=== PATIENT | male | born 1945 | race Caucasian/White ===

== ENCOUNTER 2017-04-20 09:51 | Emergency (ER) | payer MEDICARE, OTHER ==
--- NOTE | 2017-04-20 10:47 | ER Document Report ---
ED Medical Screen (RME) - General Chief Complaint: Hip Pain Stated Complaint: LEFT THIGH AND HIP NUMBNESS Time Seen by Provider: 04/20/17 10:22 Mode of Arrival: Ambulatory Information source: Patient Notes: Patient presents to emergency department with complaints of left thigh numbness and pain. Patient also reports left arm with intermittent numbness. Denies chest pain shortness of breath. Patient has history of stroke aneurysm ID cardiac surgery. Patient gives history of Saturday pulling a six-foot trailer behind him. On Saturday he went to [place] emergency department where his blood pressure and a physical exam were completed. No lab or CT. He reports he was told he was fine. He reports this morning he woke up at 0200 and had pain with numbness to his left thigh. He reports the left arm has been going numb on and off since Saturday. TRAVEL OUTSIDE OF THE [place] IN LAST 30 DAYS: No - Related Data Allergies/Adverse Reactions: oral contrast Allergy (Uncoded 04/20/17 10:01) Past Medical History - Social History Frequency of alcohol use: Occasional Drug Abuse: None Renal/ Medical History: Denies: Hx Peritoneal Dialysis Physical Exam - Vital signs Vitals: Temp Pulse Resp BP Pulse Ox 97.8 F 73 18 157/93 H 96 04/20/17 10:01 04/20/17 10:01 04/20/17 10:01 04/20/17 10:01 04/20/17 10:01 Course - Vital Signs Vital signs: Temp Pulse Resp BP Pulse Ox 97.8 F 73 18 157/93 H 96 04/20/17 10:01 04/20/17 10:01 04/20/17 10:01 04/20/17 10:01 04/20/17 10:01
[2017-04-20 11:29] LABS: ABSOLUTE BASOPHILS # (AUTO) 0.1 10^3/uL (0.0-0.2); ABSOLUTE EOSINOPHILS # (AUTO) 0.1 10^3/uL (0.0-0.6); ABSOLUTE LYMPHOCYTES (AUTO) 0.9 10^3/uL (0.5-4.7); ABSOLUTE MONOCYTES (AUTO) 0.4 10^3/uL (0.1-1.4); ABSOLUTE NEUT (AUTO) 4.8 10^3/uL (1.7-8.2); BASOPHILS % (AUTO) 0.9 % (0-2); EOSINOPHILS % (AUTO) 0.9 % (0-6); HEMOGLOBIN 13.7 g/dL (13.5-17.0); HGB HCT DIFFERENCE 0.1; LYMPHOCYTES % (AUTO) 14.1 % (13-45); MEAN CORPUSCULAR HEMOGLOBIN 31.7 pg (27.0-33.4); MEAN CORPUSCULAR HGB CONC 33.5 g/dL (32.0-36.0); MEAN CORPUSCULAR VOLUME 95 fl (80-97); MONOCYTES % (AUTO) 6.6 % (3-13); RED BLOOD COUNT 4.33 10^6/uL (4.35-5.55); RED CELL DISTRIBUTION WIDTH 12.9 % (11.5-14.0); SEGMENTED NEUTROPHILS % (AUTO) 77.5 % (42-78); WHITE BLOOD COUNT 6.2 10^3/uL (4.0-10.5)
--- NOTE | 2017-04-20 11:44 | ER Document Report ---
ED General - General Mode of Arrival: Ambulatory Information source: Patient TRAVEL OUTSIDE OF THE [place] IN LAST 30 DAYS: No - HPI Patient complains to provider of: Numbness Onset: Other - 04/16/2017 Onset/Duration: Sudden, Intermittent Associated symptoms: None Recently seen / treated by doctor: Yes - 04/16/2017 (different emergency department) <YAIR GIMENEZ - Last Filed: 04/20/17 11:54> <MAJOR AYERS - Last Filed: 04/20/17 19:51> - General Chief Complaint: Numbness Stated Complaint: LEFT THIGH AND HIP NUMBNESS Time Seen by Provider: 04/20/17 10:22 Notes: Patient is a 71-year-old male, with history of heart disease, presenting to the emergency department concerned numbness in his left and right extremities onset Sunday, April 16, 2017. Patient states that he was seen at another ER on Saturday , and the numbness was only in his left arm. Patient states that subsequently resolved. Patient admits to lifting some heavy stones and pushing them in a wagon on Saturday. Patient thought that the numbness may be associated with this heavy lifting. This morning at approximately 2 AM, patient states that he woke up to use the bathroom and noticed the numbness in his left hip and thigh. Then when he got up to brush his teeth later in the morning, he noticed the numbness spread into his left and right arms. Patient reports difficulty holding a toothbrush due to loss of sensation. Patient denies any weakness, headache, slurred speech, difficulty swallowing, or blurred vision. (YAIR GIMENEZ) - Related Data Allergies/Adverse Reactions: oral contrast Allergy (Uncoded 04/20/17 10:01) Past Medical History - General Information source: Patient - Social History Smoking Status: Former Smoker Chew tobacco use (# tins/day): No Frequency of alcohol use: Occasional Drug Abuse: None Lives with: Spouse/Significant other Family History: Reviewed & Not Pertinent - Past Medical History Cardiac Medical History: Reports: Hx Atrial Fibrillation, Hx Heart Attack, Hx Hypercholesterolemia Renal/ Medical History: Denies: Hx Peritoneal Dialysis Past Surgical History: Reports: Hx Cardiac Catheterization, Hx Cardiac Surgery, Other - Cataract surgery <YAIR GIMENEZ - Last Filed: 04/20/17 11:54> Review of Systems - Review of Systems Constitutional: No symptoms reported. denies: Weakness EENT: No symptoms reported. denies: Blurred vision, Difficulty swallowing Cardiovascular: No symptoms reported Respiratory: No symptoms reported Gastrointestinal: No symptoms reported Genitourinary: No symptoms reported Male Genitourinary: No symptoms reported Musculoskeletal: No symptoms reported Skin: No symptoms reported Hematologic/Lymphatic: No symptoms reported Neurological/Psychological: No symptoms reported, Numbness - Bilateral extremities. denies: Headaches, Speech impairment -: Yes All other systems reviewed and negative <YAIR GIMENEZ - Last Filed: 04/20/17 11:54> Physical Exam <YAIR GIMENEZ - Last Filed: 04/20/17 11:54> <MAJOR AYERS - Last Filed: 04/20/17 19:51> - Vital signs Vitals: Temp Pulse Resp BP Pulse Ox 97.8 F 73 18 157/93 H 96 04/20/17 10:01 04/20/17 10:01 04/20/17 10:01 04/20/17 10:01 04/20/17 10:01 - Notes Notes: GENERAL: Alert, interacts well. No acute distress. HEAD: Normocephalic, atraumatic. EYES: Pupils equal, round, and reactive to light. Extraocular movements intact. ENT: Oral mucosa moist, tongue midline. NECK: Full range of motion. Supple. Trachea midline. LUNGS: Clear to auscultation bilaterally, no wheezes, rales, or rhonchi. No respiratory distress. HEART: Irregularly irregular. No murmurs, gallops, or rubs. ABDOMEN: Soft, non-tender. Non-distended. EXTREMITIES: Moves all 4 extremities spontaneously. No edema, radial and dorsalis pedis pulses 2/4 bilaterally. No cyanosis. NEUROLOGICAL: Alert and oriented x3. Normal speech. Cranial nerves II through XII grossly intact. Biceps and patellar DTRs 2+ bilaterally. PSYCH: Normal affect, normal mood. SKIN: Warm, dry, normal turgor. No rashes or lesions noted. (YAIR GIMENEZ) Course - Laboratory Result Diagrams: 04/20/17 11:17 04/20/17 11:17 <YAIR GIMENEZ - Last Filed: 04/20/17 11:54> - Laboratory Result Diagrams: 04/20/17 11:17 04/20/17 11:17 <MAJOR AYERS - Last Filed: 04/20/17 19:51> - Re-evaluation Re-evalutation: 04/20/17 14:09 CBC grossly unremarkable, enzymes negative, coags normal, chemistries unremarkable, CT scan of the head reveals no acute process. As the patient has been having intermittent numbness and tingling both above and below the belt and on the right and left side of his body for several days I do not believe this is a an acute or subacute stroke. A subacute stroke would have shown up on CAT scan, patient also does not fit any known stroke distribution. A CT scan renal protocol was accidentally performed on this patient due to an error in radiology. The patient was informed of the error, this CAT scan did not reveal any acute abnormalities, radiology will not charge the patient for this scan. I do not know what the etiology for his paresthesias, however there is no weakness, no slurred speech and no other signs of stroke. I did discuss with the patient following up with his primary care physician and returning should he develop slurred speech, blurred vision, weakness or any new or concerning symptoms. 04/20/17 14:11 Patient is known to have intermittent atrial fibrillation, he is primary care physician has chosen not to start him on any anticoagulants and has chosen not to start him on any rate controlling medications. At present patient is rate controlled, he will follow-up with his primary care physician as an outpatient. 04/20/17 19:51 (MAJOR AYERS) - Vital Signs Vital signs: Temp Pulse Resp BP Pulse Ox 98.0 F 64 17 136/84 H 100 04/20/17 14:35 04/20/17 14:35 04/20/17 14:35 04/20/17 14:35 04/20/17 14:35 - Laboratory Laboratory results interpreted by me: 04/20/17 11:17 RBC 4.33 L - EKG Interpretation by Me Additional EKG results interpreted by me: 04/20/17 14:11 EKG shows atrial fibrillation at a rate of 85, incomplete right bundle branch block, left anterior hemiblock, no ST segment elevations or depressions, no T- wave inversions per my interpretation. (MAJOR AYERS) Discharge <YAIR GIMENEZ - Last Filed: 04/20/17 11:54> <MAJOR AYERS - Last Filed: 04/20/17 19:51> - Discharge Clinical Impression: Left leg paresthesias, Paresthesia of upper and lower extremities of both sides Hypertension Qualifiers: Hypertension type: essential hypertension Qualified Code(s): I10 - Essential ( primary) hypertension Condition: Stable Disposition: HOME, SELF-CARE Additional Instructions: Today we did not find any signs of a stroke or a heart attack. Your blood work was normal. It is important that you follow-up with your primary care physician as an outpatient to further investigate the cause of your numbness. Please return to the emergency department should she develop chest pain, trouble breathing, weakness or any new or concerning symptoms. Your atrial fibrillation has returned. You told me that you are aware that you have atrial fibrillation and that you could feel when it came back. Please continue to follow up with your primary care physician as an outpatient. They may wish to start you on blood thinning medications now that it has returned. Scribe Attestation: 04/20/17 19:51 I personally performed the services described in the documentation, reviewed and edited the documentation which was dictated to the scribe in my presence, and it accurately records my words and actions. (MAJOR AYERS) Scribe Documentation - Scribe Written by Job:: Job Levy, 04/20/2017 1155 acting as scribe for :: Damien <YAIR GIMENEZ - Last Filed: 04/20/17 11:54> ED NIH Stroke Scale - NIH Stroke Scale When completed:: Protocol *: 1. NIH scale should be completed with appropriate accompanying assessment tools. *: 2. The NIH should reflect what the patient is capable of doing and should not be coached by the clinician. 1a. Level of Consciousness: 0=Alert;keenly responsive -: 1=Drowsy -: 2=Obtunded -: 3=Coma/unresponsive or reflex to noxious stimuli. 1a. Responses: 0 1b. Orientation Questions: a. What month is it? -: b. How old are you? -: 0=Answers both questions correctly. -: 1=Answers one question correctly or patient is intubated or has orotracheal trauma. -: 2=Answers neither question correctly. 1b. Responses: 0 1c. Response to commands: a. Open and close eyes? -: b. Outside Repairer Special and release hand? -: Credit is given despite weakness. Demonstration of task is permitted. Substitute command if hands cannot be used. -: 0=Performs both tasks correctly -: 1=Performs one task correctly -: 2=Performs neither task correctly 1c. Responses: 0 2. Gaze: Establish eye contact and instruct patient to "Follow my finger" -: 0=Normal -: 1=Partial gaze palsy. Gaze is abnormal in one or both eyes, but where forced deviation or total gaze paresis is not present. -: 2=Forced deviation or total gaze paresis. 2. Responses: 0 3. Visual Barber: Sees fingers in all four quadrants. -: 0=No visual loss. -: 1=Partial hemianopsia. -: 2=Complete hemianopsia. -: 3=Bilateral hemianopsia (including Cortical blindness) 3. Responses: 0 4. Facial Movement: Instruct patient to: -: a. Show me your teeth -: b. Raise your eyebrows -: c. Close your eyes -: d. Smile -: 0=Normal symmetrical movement -: 1=Minor paralysis (flattened nasolabial fold, asymmetry on smiling). -: 2=Partial paralysis (total or near total paralysis of lower face). -: 3=Complete paralysis of upper and lower face 4. Responses: 0 5. Motor functions (left arm): Alternate sides and extend each arm with palms down (90 degrees if sitting or 45 degrees for supine). -: 0=No drift;limb holds for full 10 seconds. -: 1=Drift; limb holds but drifts down before full 10 seconds, but does not hit bed. -: 2=Some effort against gravity; limb cannot get to or maintain position. -: 3=No effort against gravity; limb falls. -: 4=No movement. -: UN=Amputation, joint fusion, explain in comments. 5. Responses (left arm): 0 5. Motor Functions (right arm): Alternate sides and extend each arm with palms down (90 degrees if sitting or 45 degrees for supine). -: 0=No drift;limb holds for full 10 seconds. -: 1=Drift; limb holds but drifts down before full 10 seconds, but does not hit bed. -: 2=Some effort against gravity; limb cannot get to or maintain position. -: 3=No effort against gravity; limb falls. -: 4=No movement. -: UN=Amputation, joint fusion, explain in comments. 5. Responses (right arm): 0 6. Motor Functions (left leg): With patient lying supine, alternate sides and extend each leg (30 degrees always while supine). -: 0=No drift, leg holds position for full 5 seconds -: 1=Drift; leg falls before full 5 seconds but does not hit bed. -: 2=Some effort against gravity, leg falls to bed but some effort against gravity. -: 3=No effort against gravity, leg falls to bed immediately. -: 4=No movement. -: UN=Amputation, joint fusion; explain in comments. 6. Responses (left leg): 0 6. Motor Functions (right leg): With patient lying supine, alternate sides and extend each leg (30 degrees always while supine). -: 0=No drift, leg holds position for full 5 seconds -: 1=Drift; leg falls before full 5 seconds but does not hit bed. -: 2=Some effort against gravity, leg falls to bed but some effort against gravity. -: 3=No effort against gravity, leg falls to bed immediately. -: 4=No movement. -: UN=Amputation, joint fusion; explain in comments. 6. Responses (right leg): 0 7. Limb Ataxia: With eyes open instruct patient to: -: a. "Touch your finger to your nose". -: b. "Touch your heel to your mathur" -: 0=Absent -: 1=Present in one limb. -: 2=Present in two limbs. -: UN=Amputation or joint fusion; explain in comments. 7. Responses: 0 8. Sensory: Test sensation using pinprick or noxious stimuli. Test as many body parts as possible. -: 0=Normal;no sensory loss -: 1=Mile to moderate sensory loss (patient feels pin prick but is less sharp on affected side). -: 2=Severe or total sensory loss. 8. Responses: 0 9. Best Language: Instruct patient to: -: a. "Describe what you see in this picture." -: b. "Name the items in this picture." -: c. "Read these sentences." -: 0=No aphasia, normal -: 1=Mild to moderate aphasia. -: 2=Severe aphasia -: 3=Mute, global aphasia, no usable speech or auditory comprehension. 9. Responses: 0 10. Articulation, Dysarthia: Instruct patient to: -: "Read these words" or "Repeat these words" -: 0=Normal -: 1=Mild to moderate; patient may slur some words but can be understood without difficulty. -: 2=Severe; patients speech so slurred as to be unintelligible in the absence of dysphasia. -: UN=Intubated or other physical barrier, explain in comments. 10. Responses: 0 11. Extinction or inattention: 0=No abnormality -: 1= Visual, tactile, auditory, spatial, or personal inattention or extinction to bilateral simulation in one or the sensory modalities. -: 2=Profound dionisio-inattention or dionisio-inattention to more than one modality; does not recognize own hand. 11. Responses: 0 Total Score: 0 <YAIR GIMENEZ - Last Filed: 04/20/17 11:54>
[2017-04-20 11:55] LABS: ALANINE AMINOTRANSFERASE 35 U/L (21-72); ALBUMIN 4.1 g/dL (3.5-5.0); ALKALINE PHOSPHATASE 86 U/L (38-126); ANION GAP 13 (5-19); ASPARTATE AMINO TRANSFERASE 24 U/L (17-59); BILIRUBIN,DIRECT 0.3 mg/dL (0.0-0.4); BILIRUBIN,TOTAL 0.7 mg/dL (0.2-1.3); BLOOD UREA NITROGEN 15 mg/dL (7-20); CALCIUM 9.3 mg/dL (8.4-10.2); CARBON DIOXIDE 27 mmol/L (22-30); CHLORIDE 99 mmol/L (98-107); CREATINE KINASE 116 U/L (55-170); CREATININE RESULT 0.82 mg/dL (0.52-1.25); GLUCOSE 98 mg/dL (75-110); POTASSIUM 4.2 mmol/L (3.6-5.0); SODIUM 138.5 mmol/L (137-145); TOTAL PROTEIN 6.9 g/dL (6.3-8.2)
[2017-04-20 11:57] LABS: PROTHROMBIN TIME 13.3 SEC (11.4-15.4)
[2017-04-20 12:06] LABS: CREATINE KINASE MB 1.98 ng/mL (<4.55)
[2017-04-20 12:07] LABS: TROPONIN I < 0.012 ng/mL
[2017-04-20 14:54] VITALS: BP 136/84
--- NOTE | 2017-04-20 17:49 | EKG REPORT ---
SEVERITY:- ABNORMAL ECG - ATRIAL FIBRILLATION MULTIFORM VENTRICULAR PREMATURE COMPLEXES INCOMPLETE RBBB AND LAFB : Confirmed by: Anali Sandoval MD 20-Apr-2017 17:49:09
== END 2017-04-20 14:40 | disposition home or self-care (01) ==
LOC: ER 09:51
DX: R20.2 Paresthesia of skin (principal); R20.0 Anesthesia of skin; I10 Essential (primary) hypertension; I25.2 Old myocardial infarction; I48.91 Unspecified atrial fibrillation; Z87.891 Personal history of nicotine dependence
CPT/HCPCS: 36415; 70450; 76380; 80053; 82550; 82553; 84484; 85025; 85610; 93005; 93010; 99284

== ENCOUNTER 2017-05-27 08:41 | Inpatient (IN) | payer MEDICARE, OTHER ==
--- NOTE | 2017-05-27 09:20 | ER Document Report ---
ED Hip Pain/Injury - General Mode of Arrival: Ambulatory Information source: Patient TRAVEL OUTSIDE OF THE [place] IN LAST 30 DAYS: No - HPI Patient complains to provider of: Injury, Pain, Hip Occurred: Just prior to arrival Where: Home Onset/Duration: Sudden Pain Level: 5 Context: Fell/lost balance Symptoms prior to fall: None Symptoms since fall: None Rotation of extremity: Inward <YUE YOUNG - Last Filed: 05/27/17 11:43> <SHANIQUA PATTON - Last Filed: 05/27/17 13:38> - General Chief Complaint: Hip Injury Stated Complaint: INJURY;HIP PAIN Time Seen by Provider: 05/27/17 08:46 Notes: Patient is a 71-year-old male who presents to the emergency department today with complaints of right hip pain. Patient states that he was bending over picking up weeds when he fell. Patient states he has dislocated this hip three times in the past. Patient states that the last time this hip was dislocated was approximately one year ago. Patient has normal digit movement distally with 2+ distal pulses and normal sensation. (YUE YOUNG) - Related Data Allergies/Adverse Reactions: oral contrast Allergy (Uncoded 05/27/17 09:01) Home Medications: Current Home Medications Gluc 2Kcl/Chondr/Inés Hy/Hy AC [Glucosamine & Chondroitin Cap] 1 each PO DAILY 05/27/17 [History] Lisinopril/Hydrochlorothiazide [Lisinopril-Hctz 20-12.5 mg Tab] 1 each PO DAILY 05/27/17 [History] Saw [place]ec Fruit [Saw [place]ec] 450 mg PO DAILY 05/27/17 [History] Past Medical History - General Information source: Patient - Social History Smoking Status: Never Smoker Cigarette use (# per day): No Frequency of alcohol use: None Drug Abuse: None Lives with: Family Family History: Reviewed & Not Pertinent - Past Medical History Cardiac Medical History: Reports: Hx Atrial Fibrillation, Hx Heart Attack, Hx Hypercholesterolemia Past Surgical History: Reports: Hx Cardiac Catheterization, Hx Cardiac Surgery, Hx Orthopedic Surgery - b/l hip, Other - Cataract surgery <YUE YOUNG - Last Filed: 05/27/17 11:43> Review of Systems - Review of Systems Constitutional: No symptoms reported EENT: No symptoms reported Cardiovascular: No symptoms reported Respiratory: No symptoms reported Gastrointestinal: No symptoms reported Genitourinary: No symptoms reported Male Genitourinary: No symptoms reported Musculoskeletal: See HPI, Joint pain - Right hip, obvious deformity Skin: No symptoms reported Hematologic/Lymphatic: No symptoms reported Neurological/Psychological: No symptoms reported -: Yes All other systems reviewed and negative <YUE YOUNG - Last Filed: 05/27/17 11:43> Physical Exam <HANNAHVERITOYUE - Last Filed: 05/27/17 11:43> <SHANIQUA PATTON - Last Filed: 05/27/17 13:38> - Vital signs Vitals: Temp Pulse Resp BP Pulse Ox 98.0 F 94 20 146/74 H 96 05/27/17 08:42 05/27/17 08:42 05/27/17 08:42 05/27/17 08:42 05/27/17 08:42 - Notes Notes: Physical Exam: General: Alert, appears uncomfortable. HEENT: Normocephalic. Atraumatic. PERRL. Extraocular movements intact. Oropharynx clear. Neck: Supple. Non-tender. Respiratory: No respiratory distress. Clear and equal breath sounds bilaterally. Cardiovascular: Irregularly irregular, regular rate. Abdominal: Normal Inspection. Non-tender. No distension. Normal Bowel Sounds. Back: Non-tender. No deformity or step off. Extremities Upper extremities: Normal inspection. Normal ROM. Lower extremities: Right leg is shortened and internally rotated. Right foot is well profused, 2+ pulses. Neurological: Normal cognition. AAOx4. Normal speech. Psychological: Normal affect. Normal Mood. Skin: Diaphoretic, working outside prior to arrival. (YUE YOUNG) Course - Laboratory Result Diagrams: 05/27/17 09:30 05/27/17 09:30 <HANNAHYUE NDIAYE - Last Filed: 05/27/17 11:43> - Laboratory Result Diagrams: 05/27/17 09:30 05/27/17 09:30 - Diagnostic Test Radiology reviewed: Reports reviewed - Right prosthetic hip is dislocated going superiorly and laterally to the joint. - EKG Interpretation by [place] EKG shows normal: Intervals, ST-T Waves. abnormal: Sinus rhythm, [place], QRS Complexes Rate: Normal - 99 Rhythm: A.Fib [place]/QRS: Left axis deviation, LAHB/LAFB When compared to previous EKG there are: No significant change - Consults Dr. Hernandez Consulted provider: will come to ER - He will check with Dr. Solano who was in the operating room, and one or the other will come see the patient. <SHANIQUA PATTON - Last Filed: 05/27/17 13:38> - Vital Signs Vital signs: Temp Pulse Resp BP Pulse Ox 98.0 F 98 16 159/96 H 100 05/27/17 08:42 05/27/17 12:31 05/27/17 12:31 05/27/17 12:31 05/27/17 12:31 - Laboratory Laboratory results interpreted by me: 05/27/17 05/27/17 09:30 09:30 WBC 3.9 L RBC 4.14 L Hgb 13.4 L Glucose 137 H Creatine Kinase 399 H Procedures <YUE YOUNG - Last Filed: 05/27/17 11:43> - Conscious Sedation Conscious sedation Time started: 12:00 Time completed: 12:15 Consent obtained: Yes Indication: Dislocated hip Pt with a mild systemic disease.: P2. - ASA Classification. Airway Evaluation: Normal anatomy Mallampati Classification: Class 2 Used during procedure: Suction available, IV access obtained, Pulse ox on pt., museum archivist on pt. Medications administered: Fentanyl, Diprivan Reversal agents: None I personally performed/intraservice time: Procedure, 30 min or less Complications: No - Joint Reduction/Fracture Care Right Hip Consent obtained: Yes Conscious sedation: Yes Pre-procedure NV exam: Yes Post-procedure NV exam: Yes Post-reduction x-ray: Joint not reduced Reduction attempts: 1 Complications: No <SHANIQUA PATTON - Last Filed: 05/27/17 13:38> - Conscious Sedation Conscious sedation Notes: Patient did become apneic after the unsuccessful hip reduction attempt. This required bag valve mask for several minutes until he began to breathe on his own. (SHANIQUA PATTON) - Joint Reduction/Fracture Care Right Hip Notes: 05/27/17 12:17 Unsuccessful reduction attempt under conscious sedation. (SHANIQUA PATTON) Discharge <YUE YOUNG - Last Filed: 05/27/17 11:43> - Discharge Admitting Provider: Dr. Solano Unit Admitted: OR <SHANIQUA PATTON - Last Filed: 05/27/17 13:38> - Discharge Clinical Impression: Recurrent dislocation, right hip Condition: Stable Disposition: ADMITTED INPATIENT Scribe Attestation: 05/27/17 13:38 I personally performed the services described in the documentation, reviewed and edited the documentation which was dictated to the scribe in my presence, and it accurately records my words and actions. (SHANIQUA PATTON) Scribe Documentation - Scribe Written by Job:: Job Flores, 05/27/2017 [id number] acting as scribe for :: Lidia <YUE YOUNG - Last Filed: 05/27/17 11:43>
--- NOTE | 2017-05-27 09:34 | RADIOLOGY REPORT (SQ) ---
EXAM DESCRIPTION: HIP RIGHT AP/LATERAL COMPLETED DATE/TIME: 05/27/2017 9:26 am REASON FOR STUDY: bed 8 right hip ?dislocation +tenderness COMPARISON: None. NUMBER OF VIEWS: Two views. TECHNIQUE: AP and frog-leg view of the right hip. LIMITATIONS: None. FINDINGS: MINERALIZATION: Normal. RIGHT HIP: There is a bipolar prosthesis in place. The prosthesis is dislocated. Femoral component is displaced superiorly and laterally. OPPOSITE HIP: There is a bipolar prosthesis in place. No dislocation. SOFT TISSUES: There is vascular calcification. OTHER: No other significant finding. 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 The right prosthesis is dislocated as describ ed. TECHNICAL DOCUMENTATION: JOB ID: [id number] [employer] [facility] [place] [employer]- All Rights Reserved
[2017-05-27 09:55] LABS: ABSOLUTE EOSINOPHILS # (AUTO) 0.1 10^3/uL (0.0-0.6); ABSOLUTE LYMPHOCYTES (AUTO) 0.8 10^3/uL (0.5-4.7); ABSOLUTE MONOCYTES (AUTO) 0.4 10^3/uL (0.1-1.4); ABSOLUTE NEUT (AUTO) 2.6 10^3/uL (1.7-8.2); BASOPHILS % (AUTO) 0.8 % (0-2); EOSINOPHILS % (AUTO) 2.3 % (0-6); HEMOGLOBIN 13.4 g/dL (13.5-17.0); HGB HCT DIFFERENCE 0.2; LYMPHOCYTES % (AUTO) 20.3 % (13-45); MEAN CORPUSCULAR HEMOGLOBIN 32.3 pg (27.0-33.4); MEAN CORPUSCULAR HGB CONC 33.4 g/dL (32.0-36.0); MEAN CORPUSCULAR VOLUME 97 fl (80-97); MONOCYTES % (AUTO) 10.8 % (3-13); RED BLOOD COUNT 4.14 10^6/uL (4.35-5.55); RED CELL DISTRIBUTION WIDTH 13.1 % (11.5-14.0); SEGMENTED NEUTROPHILS % (AUTO) 65.8 % (42-78); WHITE BLOOD COUNT 3.9 10^3/uL (4.0-10.5)
[2017-05-27 10:19] LABS: ALANINE AMINOTRANSFERASE 45 U/L (21-72); ALBUMIN 3.8 g/dL (3.5-5.0); ALKALINE PHOSPHATASE 88 U/L (38-126); ANION GAP 11 (5-19); ASPARTATE AMINO TRANSFERASE 36 U/L (17-59); BILIRUBIN,DIRECT 0.3 mg/dL (0.0-0.4); BILIRUBIN,TOTAL 0.9 mg/dL (0.2-1.3); BLOOD UREA NITROGEN 18 mg/dL (7-20); CALCIUM 9.4 mg/dL (8.4-10.2); CARBON DIOXIDE 25 mmol/L (22-30); CHLORIDE 103 mmol/L (98-107); CREATINE KINASE 399 U/L (55-170); CREATININE RESULT 0.85 mg/dL (0.52-1.25); GLUCOSE 137 mg/dL (75-110); POTASSIUM 4.1 mmol/L (3.6-5.0); TOTAL PROTEIN 6.7 g/dL (6.3-8.2)
[2017-05-27] MEDS ORDERED: FENTANYL CITRATE INJ/PF 100 MCG/2 ML AMPUL IV PRN (10:39)
[2017-05-27] MEDS ORDERED: PROPOFOL INJ 200 MG/20 ML VIAL IV PRN (10:40)
[2017-05-27] MEDS ORDERED: NORMAL SALINE 1000 ML 500 ML IV ONE (10:40)
[2017-05-27 10:46] LABS: CREATINE KINASE MB 4.27 ng/mL (<4.55)
[2017-05-27 10:47] LABS: TROPONIN I < 0.012 ng/mL
--- NOTE | 2017-05-27 13:55 | PDOC H&P ---
History of Present Illness Admission Date/PCP: 05/27/17 13:19 History of Present Illness: KEVIN MUNIZ is a 71 year old male comes with complaints of right hip pain. He status post bilateral total hip arthroplasty by Dr. Cosby in [place] about 3 years ago. He has had 2 prior prosthetic dislocations on the right side no problems on the left side. He was bending over to pull some weeds this afternoon and he again experienced a hip dislocation. Is brought to the emergency room where a closed reduction under conscious sedation was attempted by Dr. Murillo which was unsuccessful. Orthopedics was consulted for for for prosthetic reduction. Past Medical History Cardiac Medical History: Reports: Atrial Fibrillation, Myocardial Infarction, Hyperlipidema Past Surgical History Past Surgical History: Reports: Cardiac Catheterization, Orthopedic Surgery - b/ l hip, Other - Cataract surgery Social History Information Source: Patient, [facility] Records Lives with: Family Smoking Status: Never Smoker Family History Family History: Reviewed & Not Pertinent Parental Family History Reviewed: No Children Family History Reviewed: No Sibling(s) Family History Reviewed.: No Medication/Allergy Home Medications: Gluc 2Kcl/Chondr/Inés Hy/Hy AC [Glucosamine & Chondroitin Cap] 1 each PO DAILY 05/27/17 Lisinopril/Hydrochlorothiazide [Lisinopril-Hctz 20-12.5 mg Tab] 1 each PO DAILY 05/27/17 Saw [place] Fruit [Saw [place]] 450 mg PO DAILY 05/27/17 Allergies/Adverse Reactions: oral contrast Allergy (Uncoded 05/27/17 09:01) Review of Systems All systems: as per PMH Physical Exam Vital Signs: Temp Pulse Resp BP Pulse Ox 36.3 C 88 18 154/79 H 100 05/27/17 13:49 05/27/17 13:49 05/27/17 13:49 05/27/17 13:49 05/27/17 13:49 General appearance: PRESENT: mild distress Head exam: PRESENT: normocephalic Eye exam: PRESENT: EOMI Respiratory exam: PRESENT: unlabored Cardiovascular exam: PRESENT: tachycardia Pulses: PRESENT: +1 pedal pulses bilateral Vascular exam: PRESENT: normal capillary refill GI/Abdominal exam: PRESENT: soft Rectal exam: PRESENT: deferred Extremities exam: PRESENT: other - Right lower extremity shortened and externally rotated Neurological exam: PRESENT: alert, awake, oriented to person, oriented to place , oriented to time, oriented to situation, CN II-XII grossly intact. ABSENT: motor sensory deficit Psychiatric exam: PRESENT: appropriate affect, normal mood. ABSENT: homicidal ideation, suicidal ideation Skin exam: PRESENT: dry, intact, warm. ABSENT: cyanosis, rash Results Impressions: Hip/Pelvis X-Ray 05/27/17 00:00 IMPRESSION: There is been bilateral hip replacements. The right prosthesis is dislocated as described. Status: Imported from PACS Assessment & Plan - Diagnosis (1) Recurrent dislocation, right hip Is this a current diagnosis for this admission?: YesPlan: 71-year-old white male with recurrent right prosthetic hip instability and a myriad of comorbidities. Plan will be for an attempted closed reduction under conscious sedation in the operating room. - Time Time Spent: 50 to 70 Minutes Anticipated discharge: Home Within: within 24 hours
[2017-05-27] MEDS ORDERED: MIDAZOLAM 2 MG/2 ML INJ ONE (15:01)
[2017-05-27] MEDS ORDERED: PROPOFOL INJ 200 MG/20 ML VIAL IV ONE (15:02)
[2017-05-27] MEDS ORDERED: MORPHINE SULFATE 10 MG/ML INJ ONE (15:02)
--- NOTE | 2017-05-27 15:34 | Operative Report ---
Operative Report DATE OF SURGERY: 05/27/17 PREOPERATIVE DIAGNOSIS: Right prosthetic hip dislocation OPERATION: Attempted closed reduction right prosthetic hip dislocation SURGEON: ANGEL SOUSA ANESTHESIA: Moderate Sedation PROCEDURE: With the patient supine on the operating table under a conscious sedation and subsequently choline relaxation the right lower extremity is manipulated and fluoroscopic guidance in an attempt to affect a prosthetic hip reduction. This was unsuccessful. It seems that the femoral head has button holed through soft tissue and is preventing reduction. The next consideration would be for an open reduction. However with recurrent dislocations and what appears to be radiographically retroverted right acetabular component procedure were to be performed, it would be appropriate to revise the acetabular component. We are not in a position to do that this afternoon. I discussed this with the patient's and we agreed that it would be better to admit the patient to the hospital and come back tomorrow with an open procedure that would both reduce the prosthetic hip dislocation as well as revise the acetabular component. The patient's return to the PACU in satisfactory condition.
[2017-05-27] MEDS ORDERED: ONDANSETRON HCL INJ/PF 4 MG/2 ML SDV IV PRN (15:57)
[2017-05-27] MEDS ORDERED: OXYCODONE HCL IR 5 MG TABLET PO PRN (15:57)
--- NOTE | 2017-05-27 18:55 | EKG REPORT ---
SEVERITY:- ABNORMAL ECG - ATRIAL FIBRILLATION LAD, CONSIDER LEFT ANTERIOR FASCICULAR BLOCK : Confirmed by: Carlos Patrick 27-May-2017 18:55:28
--- NOTE | 2017-05-27 20:38 | RADIOLOGY REPORT (SQ) ---
EXAM DESCRIPTION: CHEST SINGLE VIEW COMPLETED DATE/TIME: 05/27/2017 8:16 pm REASON FOR STUDY: atrial fib and MV repair Pre-op COMPARISON: None. EXAM PARAMETERS: NUMBER OF VIEWS: One view. TECHNIQUE: Single frontal radiographic view of the chest acquired. RADIATION DOSE: NA LIMITATIONS: None. FINDINGS: LUNGS AND PLEURA: No opacities, masses or pneumothorax. No pleural effusion. MEDIASTINUM AND HILAR STRUCTURES: No masses. Contour normal. HEART AND VASCULAR STRUCTURES: Heart normal in size. Normal vasculature. BONES: No acute findings. HARDWARE: Sternotomy wires. OTHER: No other significant finding. IMPRESSION: NO ACUTE RADIOGRAPHIC FINDING IN THE CHEST. TECHNICAL DOCUMENTATION: JOB ID: [id number]
[2017-05-27] MEDS: RINGERS SOLUTION,LACTATED 1,000 ML IV PRN (21:30)
[2017-05-28] MEDS: MORPHINE SULFATE 10 MG/ML INJ IV PRN ×6 (03:36→23:27)
[2017-05-28] MEDS: RINGERS SOLUTION,LACTATED 1,000 ML IV PRN ×2 (03:37→22:07)
[2017-05-28 05:28] LABS: ABSOLUTE MONOCYTES (AUTO) 0.6 10^3/uL (0.1-1.4); ABSOLUTE NEUT (AUTO) 6.3 10^3/uL (1.7-8.2); BASOPHILS % (AUTO) 0.2 % (0-2); EOSINOPHILS % (AUTO) 0.4 % (0-6); HEMATOCRIT 34.6 % (37.9-51.0); HEMOGLOBIN 11.7 g/dL (13.5-17.0); HGB HCT DIFFERENCE 0.5; LYMPHOCYTES % (AUTO) 13.1 % (13-45); MEAN CORPUSCULAR HEMOGLOBIN 32.3 pg (27.0-33.4); MEAN CORPUSCULAR HGB CONC 33.9 g/dL (32.0-36.0); MEAN CORPUSCULAR VOLUME 95 fl (80-97); MONOCYTES % (AUTO) 7.3 % (3-13); RED BLOOD COUNT 3.63 10^6/uL (4.35-5.55); RED CELL DISTRIBUTION WIDTH 13.2 % (11.5-14.0)
[2017-05-28 05:40] LABS: ANION GAP 6 (5-19); BLOOD UREA NITROGEN 17 mg/dL (7-20); CALCIUM 8.5 mg/dL (8.4-10.2); CARBON DIOXIDE 28 mmol/L (22-30); CHLORIDE 102 mmol/L (98-107); CREATININE RESULT 0.76 mg/dL (0.52-1.25); GLUCOSE 99 mg/dL (75-110); POTASSIUM 3.9 mmol/L (3.6-5.0)
[2017-05-28 05:47] LABS: PARTIAL THROMBOPLASTIN TIME 30.6 SEC (23.5-35.8)
[2017-05-28] MEDS ORDERED: DIAZEPAM INJ 10 MG/2 ML DISP.SYRIN ONE (06:44)
[2017-05-28] MEDS ORDERED: DIAZEPAM 5 MG TABLET PO PRN (06:54)
[2017-05-28] MEDS ORDERED: DIAZEPAM INJ 10 MG/2 ML DISP.SYRIN IV PRN (08:05)
[2017-05-28] MEDS: HYDROCHLOROTHIAZIDE 12.5 MG CAPSULE PO SCH (09:56)
[2017-05-28] MEDS: LISINOPRIL 10 MG TABLET PO SCH (09:57)
[2017-05-28] MEDS ORDERED: (PENDING PHARMACY ID) (Lisinopril/Hydrochlorothiazide [Lisinopril-Hctz 20-12.5 Mg Tab] 1 T PO SCH (10:00)
--- NOTE | 2017-05-28 15:44 | CONSULTATION REPORT E ---
Consultation Report NAME: KEVIN MUNIZ : 1945 AGE: 71Y DATE: 05/27/2017 537 A TO: WILLOW ADAMS M.D. FROM: SHANIQUA PATTON M.D. Requesting Physician REASON FOR CONSULTATION: Preoperative cardiac risk factors in a patient with a history of coronary artery bypass graft surgery x2, history of chronic atrial fibrillation and history of mitral valve repair versus replacement. HISTORY: The patient is a 71-year-old male with known history of hypertension, prior history of coronary artery disease with 2 vessel bypass with no history of angina at anytime and no history of OR, history of mitral valve replacement with valve leaflets, and what seems to be chronic atrial fibrillation not on anticoagulation who states that he was removing leaves at which time he must have twisted his hip and then he had pain in the pain. It was found that the patient had a dislocated right hip. Attempts to a post reduction of the dislocation in the operating room was not successful and hence the patient is being planned to be taken for open reduction in the OR sometime tomorrow. The patient denies any palpitations or rapid beating of the heart. The patient is not on any AV irina or SA irina blocking agents, but his atrial fibrillation seems to be only around 100, earlier when the pain was controlled and heart rate was in the 90's. He denies any chest pain or discomfort. There are no anginal symptoms for a long time. He states that he had a stress test 2 years ago, which as per the was negative. He is very active and walks a lot and climbs up and down the stairs without any palpitations, shortness of breath, anginal symptoms/chest pains. He has no history of PND or orthopnea. He has no history of leg edema. No history of congestive heart failure. There is no history of TIA or CVA symptoms. PAST MEDICAL HISTORY: As mentioned earlier. He states he had a history of coronary artery disease diagnosed at the time when he had a leaky valve. There is mitral regurgitation. He said he had 2 vessel bypass done, he does not know the details and this was many years ago. He also had what he said is repair of the mitral valve, but he also states that the valve leaflets were leaking and hence the valve leaflets were replaced with so it is not clear if he had mitral valve replacement of the prosthetic valve versus mitral valve repair. The collaborates this. He denies any angina at any time or congestive heart failure. It seems that he has chronic atrial fibrillation and is not on anticoagulation. He has a history of craniotomy for cerebral aneurysm with . He has a history of hypertension. There is no history of diabetes mellitus or history of sleep apnea. No history of pulmonary embolism. There is no history of asthma or COPD. No history of pleuritic chest pain. No history of pulmonary embolism. No history of sleep apnea. There is no history of chronic kidney disease. There is no history of anxiety or depression. There is no history of CVA or TIA. The patient states in the past he has had sepsis and found to have a hepatic abscess, which is drained percutaneously. PAST SURGICAL HISTORY: Positive for history of craniotomy for resection of intercerebral aneurysm without any sequela of TIA, CVA, dysphagia or aphagia. 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 He has had cardiac catheterization and coronary artery bypass graft surgery x2 with mitral valve repair and replacement in the past. The states that a few years ago he dislocated the right hip and closed reduction was unsuccessful and he had to have open surgical reduction of the dislocation. Subsequently, he had a second dislocation that was treated with closed reduction successful. This is the third dislocation on the right hip, which closed reduction was unsuccessful and the patient is going for open reduction some time tomorrow. He has also had cataract surgery. FAMILY HISTORY: Strongly positive for premature coronary artery disease. Father of OR at age 47. SOCIAL HISTORY: The patient does not smoke. There is no history of EtOH abuse. He has never smoked. ALLERGIES: The patient states that he is allergic to ORAL CONTRAST, but on further questioning he had CT of his abdomen for the diagnosis of hepatic abscess since he had sepsis. At that time, the patient states that he drank oral contrast and went down to the CAT scan where he got an IV contrast and he stopped breathing. Hence, probably the patient is allergic to IV CONTRAST and not just the oral contrast. CODE STATUS: The patient is a FULL CODE. His is his surrogate healthcare decision maker. REVIEW OF SYMPTOMS: CONSTITUTIONAL: There is no history of fever, chills or rigors. No history of fatigue, weakness or easy fatigability. HEAD: No history of head injury. History of craniotomy for intercerebral aneurysm without any sequela. No history of headaches or migraines. EYES: No history of amblyopia or diplopia. No history of amaurosis fugax. EARS: No history of hearing loss. No history of recurrent ear infections. No history of tinnitus. NOSE: No history of deviated nasal septum. No history of inflammation of the mucous membranes. No history of nasal polyps. No history of nosebleeds. MOUTH: No history of ulcers in the mouth. No history of altered taste sensation. No history of bleeding from the gums. THROAT: No odynophagia or dysphagia. No recurrent sore throat. SKIN: There is no skin rashes. There is no petechiae or ecchymosis. There is no pruritus. There is no psoriasis. There is no history of skin cancer. NECK: There is no lymphadenopathy. No symptoms of C-spine or arthritis. No goiter. LUNGS: No history of asthma or COPD. No history of cough, sputum production or wheezing. No history of pleuritic chest pain. No history of hemoptysis. No history of sleep apnea. No history of pulmonary embolism. No history of wheezing. CARDIOVASCULAR: History of hypertension well controlled with single medication. The patient says is mild and usually well controlled. He has chronic atrial fibrillation, not on anticoagulation. He has a history of coronary artery disease, history of coronary artery bypass graft surgery x2 with mitral valve replacement. He denies any symptoms of congestive heart failure. There is no PND or orthopnea. No leg edema. GASTROINTESTINAL: No history of GERD. No history of fatty food intolerance. No history of GI bleed. No history of altered bowel movements. No history of cirrhosis. No history of jaundice. RENAL: No history of chronic kidney disease. No history of hematuria, pyuria or dysuria. No symptoms of enlarged prostate. MUSCULOSKELETAL: History of recurrent dislocation of the right hip, but denies any history of arthritis. No history of collagen vascular disease. CENTRAL NERVOUS SYSTEM: No history of TIA or CVA. No history of seizures, headaches or migraines. History of craniotomy as mentioned earlier with resection of the intracerebral aneurysm. There is no history of gait imbalance. PSYCHIATRIC: No history of anxiety or depression. No history of suicidal or homicidal ideation. VASCULAR: No history of calf or buttock claudication. No history of DVT. HEMATOLOGIC: No history of bleeding diathesis. No history of clotting disorders. MEDICATIONS: Include: 1. Hydrochlorothiazide 12.5 mg p.o. daily. 2. Normal saline 500 mL dose x1. 3. Lisinopril 20 mg p.o. daily. 4. Morphine sulfate 2 mg IV q.12 h. p.r.n. 5. Zofran 4 mg IV q.6 h. p.r.n. 6. Oxycodone IR 5 mg p.o. q.6h. p.r.n. 7. Lactate ringers at 150 mL/h. PHYSICAL EXAMINATION: GENERAL: The patient is well-built and well-nourished, slightly drowsy due to the patient's morphine, but seems to be still able to be oriented and answers questions appropriately. He is well-groomed. His is the bedside who aides in the history. VITAL SIGNS: The patient is afebrile with a temperature of 97.4 degrees Fahrenheit. His pulse is 100 beats per minute, blood pressure 158/81, respirations 20 per minute. O2 sat is 93% on room air. HEENT: Head is atraumatic, normocephalic. EYES: Pupils are equal, round, regular, reactive to light and accommodation. Extraocular movements are normal. There is no conjunctival pallor. There is no scleral icterus. EARS: Tympanic membranes are intact. External auditory canals are clear. NOSE: There is no deviated nasal septum. There is no inflammation of the nasal mucous membranes. There are no nasal polyps. MOUTH: Mucous membranes of the mouth are moist. Tongue is moist. There are no ulcers. There is no bleeding from the gums. THROAT: There is no redness of the oropharynx. There are no exudates in the throat. There is no tonsillar enlargement. SKIN: There are no skin rashes. There is no petechiae or ecchymoses. There are no skin lesions. NECK: Supple. There is no JVD. There is a scar from a prior surgery on the left side of the neck. There is no goiter. Trachea is central. LUNGS: Clear to auscultation. There is no chest wall tenderness. HEART: S1 and S2 are heard. S1 is of variable intensity. There is a systolic murmur with mild regurgitation present. There is no aortic stenosis murmur or aortic regurgitation murmur. There is no mitral stenosis. There is no rub. ABDOMEN: Soft, nontender. There is no hepatosplenomegaly. Bowel sounds are well heard. EXTREMITIES: Femorals are slightly diminished. There is no femoral bruit. Leg pulses are well felt. There is no pedal edema. There is no DVT or cellulitis. There is no cyanosis or clubbing. There is no calf tenderness. There is no pedal edema. Note that there is tenderness in the right hip. CENTRAL NERVOUS SYSTEM: The patient is conscious, awake, alert, oriented x3 with no focal deficit except slightly drowsy due to him having received morphine. PSYCHIATRIC: In spite of the drowsiness, the patient's judgement and insight are intact. His affect is normal. DIAGNOSTIC TEST RESULTS: The patient's hip and pelvis x-ray shows there are bilateral hip replacements with right prosthesis dislocated as described. The patient's EKG shows atrial fibrillation with ventricular response of 99 beats/minute and left anterior fascicular block. There is incomplete right bundle branch block pattern. The patient's white count is 3900, hemoglobin is 13.4, hematocrit is 40, platelet count is 164,000. The patient's sodium is 139, potassium 4.1, chloride 103, CO2 is 25. The patient's BUN is 18, creatinine 0.85. GFR is greater than 60. Glucose is 137. Liver function tests are normal. His CK is elevated at 399. His CPK is negative. is negative at less than 0.012. His total protein is 6.7 and albumin is 3.8. IMPRESSION: 1. Right hip dislocation of the prosthesis, unsuccessful closed reduction, needs open reduction under general anesthesia. 2. Coronary artery disease, no history of OR, no anginal symptoms for a long time with the patient having good effort tolerance. 3. Two vessel coronary artery bypass graft surgery. 4. History of mitral valve repair versus replacement with a bioprosthetic valve. 5. Chronic atrial fibrillation, rate fairly well controlled in spite of the patient not being on any SA irina blocking agents. 6. Hypertension. 7. Preoperative cardiac risk assessment. RECOMMENDATIONS: I have discussed with the patient and the patient's that the patient requires antibiotic prophylaxis, especially prior to dental, GI/ procedure/surgery. They say that the other doctor told them, but I said that is standard of care. They should be aware of this fact since these procedures could cause bacterial endocarditis, especially with a repaired mitral valve/mitral valve bioprosthetic replacement. In view of the patient's good effort tolerance, the patient should be acceptable cardiac risk for this procedure under general anesthesia. Perioperatively, we will monitor the patient's heart rate and if the heart rate goes up would start the patient on Cardizem at 2.5 mg/h and increase as needed to control the heart rate, depending on the blood pressure. Would also continue telemetry on the patient perioperatively and also postoperatively we will get serial EKGs and enzymes. Postoperatively, would place the patient on telemetry. I have discussed with the patient and the patient's in detail. Note that in spite of the patient being an acceptable risk there is some degree of risk involved and this has been discussed with them. We will discuss with Dr. Solano. Note the patient was seen at 6:30 p.m. on 05/27/2017. Thirty minutes spent on this patient with more than 50% of the time spent on direct patient care. His medications have been reviewed. This case required highly complex medical decision making in view of the patient having had a history of atrial fibrillation, history of coronary artery bypass graft surgery and history of mitral valve repair versus replacement. We will follow with you postoperatively. We will get a portable chest x-ray today and we will see if the patient has time in the morning to have an echocardiogram, otherwise we will get it a couple of days after his surgery. We will monitor the patient postoperatively to make sure that the patient has no perioperative congestive heart failure, perioperative OR or atrial fibrillation with rapid ventricular response. DICTATING PHYSICIAN: WILLOW ADAMS M.D. [id number] PHY#: [id number] ID: [id number] JOB#: [id number] ACCT: [id number] cc:WILLOW ADAMS M.D. >
--- NOTE | 2017-05-28 16:44 | XCELERA REPORT ---
[address] [address] Transthoracic Echocardiogram Report Name: KEVIN MUNIZ Age: 71 yrs Gender: Male : 1945 Patient Status: Inpatient Patient Location: 5\S\537\S\A Study Date: 05/28/2017 02:05 PM Height: 62 in Weight: 180 lb BSA: 1.8 m2 Procedure: A two-dimensional transthoracic echocardiogram with color flow and Doppler was performed. The study was technically difficult with many images being suboptimal in quality. The study was technically limited with all images being suboptimal in quality. Reason For Study: AFIB,MURMUR,PREOP History: AFIB,MURMUR,PREOP. Ordering Physician: ANALI ADAMS Performed By: Tiny Singh Interpretation Summary The left ventricle is normal in size. There is normal left ventricular wall thickness. LV EF is 55% Left ventricular systolic function is low normal. The left ventricular wall motion is normal. The right ventricle is not well visualized secondary to technical limitations The right atrium is mildly dilated. The left atrium is mildly dilated. There is no evidence of mitral valve prolapse. There is no vegetation seen on the mitral valve. There is evidence of Mitral Vave repair There is no mitral valve stenosis. There is a moderate amount of mitral regurgitation There is no aortic valve stenosis There is no LVOT obstruction. There is Aortic Sclerrosi. There is no tricuspid stenosis. There is a severe amount of tricuspid regurgitation There is servere pulmonary hypertension by echo RVSP is 71 to 76 mm of Hg , with RA mean of 15 to 20. The inferior vena cava appeared dilated and decreased < 50% with respiration (RAP 15-20 mmHg) There is no pericardial effusion. MMode/2D Measurements \T\ Calculations RVDd: 4.1 cm LVIDd: 5.0 cm FS: 37.7 % Ao root diam: 3.3 cm IVSd: 0.98 cm LVIDs: 3.1 cm EDV(Teich): 120.1 ml LVPWd: 1.0 cm ESV(Teich): 39.0 ml Ao root area: 8.7 cm2 EF(Teich): 67.5 % Doppler Measurements \T\ Calculations MV E max africa: MV dec slope: Ao V2 max: LV V1 max P.3 cm/sec 124.1 cm/sec 2.3 mmHg MV A max africa: 709.0 cm/sec2 Ao max PG: LV V1 max: 40.3 cm/sec MV dec time: 6.2 mmHg 76.5 cm/sec MV E/A: 3.2 0.18 sec PA V2 max: PI end-d africa: TR max africa: 95.4 cm/sec 135.8 cm/sec 452.9 cm/sec PA max P.6 mmHg TR max P.7 mmHg Left Ventricle The left ventricle is normal in size. There is normal left ventricular wall thickness. LV EF is 55%. Left ventricular systolic function is low normal. LV diastolic function could not be adequately assessed due to atrial fibrilation. The left ventricular wall motion is normal. There is no thrombus. Right Ventricle The right ventricle is not well visualized secondary to technical limitations. Atria The right atrium is mildly dilated. The left atrium is mildly dilated. Mitral Valve There is evidence of Mitral Vave repair. There is no evidence of mitral valve prolapse. There is no vegetation seen on the mitral valve. There is no mitral valve stenosis. There is a moderate amount of mitral regurgitation. Aortic Valve The aortic valve is trileaflet. The aortic valve opens well. There is no aortic valvular vegetation. There is no aortic valve stenosis. There is no LVOT obstruction. There is Aortic Sclerrosi. No aortic regurgitation is present. Tricuspid Valve There is no tricuspid stenosis. There is a severe amount of tricuspid regurgitation. There is servere pulmonary hypertension by echo. RVSP is 71 to 76 mm of Hg , with RA mean of 15 to 20. Pulmonic Valve There is no pulmonic valvular stenosis. There is a mild amount of pulmonic regurgitation. Great Vessels The aortic root is normal size. The inferior vena cava appeared dilated and decreased < 50% with respiration (RAP 15-20 mmHg). Effusions There is no pericardial effusion. : ANALI ADAMS > Anali Adams
--- NOTE | 2017-05-28 22:33 | PROGRESS NOTE E ---
Progress Note NAME: KEVIN MUNIZ : 1945 AGE: 71Y DATE: 05/28/2017 ROOM: 537 SUBJECTIVE: Note that the patient is awaiting hardware for surgery. He is going to have surgery tomorrow. He denies any chest pain or discomfort. The patient remains in atrial fibrillation with controlled ventricular response without any SA or AV jeramie blocking agents. There is no shortness of breath. There is no PND, orthopnea, or leg edema. He denies any palpitations. There are no TIA or CVA symptoms. There is no dizziness, near-syncope, or syncope. Review of systems is negative for any new findings except to look at echocardiogram report. His medications have been reviewed. OBJECTIVE: GENERAL: The patient is well built and well nourished, in no acute distress. His pain is well controlled on current medication. VITAL SIGNS: He is afebrile with a temperature of 97.6 degrees Fahrenheit. His pulse is 89 beats per minute. Blood pressure 125/67. Respirations are 18 per minute. O2 saturations are 93% on room air. HEAD: Atraumatic/normocephalic. EYES: Pupils are equal, round, regular, reactive to light and accommodation. Extraocular movements are normal. There is no conjunctival pallor. There is no scleral icterus. EARS, NOSE, AND THROAT: Negative. NECK: Supple. There is no JVD. Carotids are equal. There is no bruit. There is a scar of prior surgery on the left side of the neck, and there is no JVD. There is no lymphadenopathy. There is no goiter. LUNGS: Clear to auscultation and percussion. There is no chest wall tenderness. HEART: S1, S2 is heard. S1 is of variable intensity. There is a systolic murmur of mild mitral regurgitation present. There is no aortic stenosis murmur or aortic regurgitation murmur. There is murmur of tricuspid regurgitation present. There is no mitral stenosis. There is no rub. ABDOMEN: Soft, nontender. There is no hepatosplenomegaly. Bowel sounds are well heard. EXTREMITIES: Femorals are slightly diminished. There is no femoral bruit. Leg pulses are well felt. There is no pedal edema. There is no DVT or cellulitis. There is no cyanosis or clubbing. There is no calf tenderness. There is mild tenderness in the right hip. CENTRAL NERVOUS SYSTEM: The patient is conscious, awake, alert, oriented x3, with no focal deficit. PSYCHIATRIC: The patient's judgement and insight are intact. His affect is normal. FLUID BALANCE: The patient's 24-hour intake and output is not accurate. DIAGNOSTIC DATA: The patient's echocardiogram is technically difficult, also technically limited. The left ventricle is of normal size. There is normal left ventricular wall thickness. The LV ejection fraction is 55% which is low-normal. There are no wall motion abnormalities on the images. The left atrium is mildly dilated. The right atrium is mildly dilated. There is no evidence of mitral valve prolapse. There is no vegetation seen on the mitral valve. There is evidence of mitral valve repair. There is no evidence of mitral stenosis. There is moderate amount of mitral regurgitation. There is no aortic stenosis. There is aortic sclerosis. There is no tricuspid stenosis. There is a severe amount of tricuspid regurgitation. There is severe pulmonary hypertension. Right ventricular systolic pressure is 71 to 76 mmHg with a RA mean of 15 to 20. There is no pericardial effusion. The right ventricle is not well visualized due to technical limitations. His white count is 8,000, hemoglobin is 7.7, hematocrit is 34.6, and his platelet count is 142,000. The patient's sodium is 136, potassium 3.9, chloride 102, CO2 is 28, the patient's BUN is 17, creatinine 0.76, GFR is greater than 60, glucose is 99, calcium is 9.5. IMPRESSION: 1. RIGHT HIP DISLOCATION (UNSUCCESSFUL CLOSED REDUCTION), PATIENT TO HAVE OPEN REDUCTION UNDER GENERAL ANESTHESIA OR SPINAL ANESTHESIA TOMORROW. 2. CORONARY ARTERY DISEASE, NO HISTORY OF [place], NO HISTORY OF ANGINAL SYMPTOMS FOR A LONG TIME WITH PATIENT HAVING *------* TOLERANCE. 3. TWO-VESSEL CORONARY ARTERY BYPASS GRAFT SURGERY. 4. HISTORY OF MITRAL VALVE REPAIR MOST LIKELY. 5. CHRONIC ATRIAL FIBRILLATION, RATE VERY WELL CONTROLLED IN SPITE OF THE PATIENT BEING ON SA OR AV JERAMIE BLOCKING AGENTS. 6. HYPERTENSION. 7. MODERATE MITRAL REGURGITATION. 8. SEVERE TRICUSPID REGURGITATION. 9. SEVERE PULMONARY HYPERTENSION. 10. PREOPERATIVE CARDIAC RISK ASSESSMENT. RECOMMENDATIONS: I have discussed the echocardiogram with the patient and the patient's . The patient would be at a slightly higher risk at moderate risk but still acceptable risk for the surgery. Would recommend the procedure being done under spinal anesthesia in view of the patient's severe pulmonary hypertension. In spite of the high right ventricular systolic pressure, the patient is asymptomatic. The cardiac risks have been discussed with the patient and the patient's . Later, after this surgery, will discuss with the patient and the patient's about long-term anticoagulation therapy and also medical treatment of the mitral regurgitation. Note, 30 minutes spent on this patient with more than 50% of the time spent on direct patient care. His medications have been reviewed, and also the plan of care has been discussed with the other caregiving providers on the case. Also would recommend that the patient be started on a small dose of IV Cardizem at 2.5 mg per hour drip tomorrow prior to surgery so that the rate can be controlled. I have asked the anesthesiologist research environmental engineer today to have the anesthesiologist research environmental engineer tomorrow to give me a call so that I can discuss the plans with her. Note, this involved highly complex medical decision making. Will follow with you. DICTATING PHYSICIAN: WILLOW ADAMS M.D. [id number] Y#: [id number] ID: [id number] JOB#: [id number] ACCT: [id number] cc:WILLOW ADAMS M.D. >
[2017-05-29] MEDS: MORPHINE SULFATE 10 MG/ML INJ IV PRN ×2 (05:02→22:48)
[2017-05-29] MEDS ORDERED: DILTIAZEM HCL/D5W 125 MG/125 ML RTUINJ IV PRN (10:19)
[2017-05-29] MEDS ORDERED: DEXTROSE 5%-WATER 250 ML with NOREPINEPHRINE BITARTRATE 4 MG IV PRN ×2 (10:19)
[2017-05-29] MEDS ORDERED: VANCOMYCIN HCL INJ 500 MG VIAL ONE (10:30)
[2017-05-29] MEDS ORDERED: NOREPINEPHRINE BITARTRATE INJ/PF 4 MG/4 ML SDV IV ONE (10:31)
[2017-05-29] MEDS ORDERED: DILTIAZEM HCL/D5W 0 MG/0 ML RTUINJ IV ONE (10:48)
[2017-05-29] MEDS ORDERED: MIDAZOLAM 2 MG/2 ML INJ ONE (10:51)
[2017-05-29] MEDS ORDERED: FENTANYL CITRATE INJ/PF 250 MCG/5 ML AMPULE ONE (10:52)
[2017-05-29] MEDS ORDERED: PROPOFOL INJ 200 MG/20 ML VIAL IV ONE (10:52)
[2017-05-29] MEDS ORDERED: DILTIAZEM HCL INJ 25 MG/5 ML VIAL ONE (10:52)
[2017-05-29] MEDS ORDERED: THROMBIN (BOVINE) TOPICAL 20000 UNIT VIAL ONE (10:57)
[2017-05-29] MEDS ORDERED: THROMBIN (BOVINE) 5000 UNIT EPITAXIS KIT ONE (10:57)
[2017-05-29] MEDS ORDERED: BUPIVACAINE INJ/PF LIPOSOME/PF 266 MG/20 ML SDV ONE (10:57)
[2017-05-29] MEDS ORDERED: DILTIAZEM HCL/D5W 125 MG/125 ML RTUINJ IV ONE (11:27)
[2017-05-29] MEDS ORDERED: ZOLPIDEM TARTRATE 5 MG TABLET PO PRN (13:21)
[2017-05-29] MEDS ORDERED: RINGERS SOLUTION,LACTATED 1,000 ML IV PRN (13:21)
[2017-05-29] MEDS ORDERED: ONDANSETRON 4 MG TAB.RAPDIS PO PRN (13:21)
[2017-05-29] MEDS ORDERED: MORPHINE SULFATE 10 MG/ML INJ IM PRN (13:21)
[2017-05-29] MEDS ORDERED: MAG HYDROX/AL HYDROX/SIMETH SUSP 30 ML UDCUP PO PRN (13:21)
[2017-05-29] MEDS ORDERED: DIPHENHYDRAMINE HCL 50 MG/ML VIAL IV PRN (13:21)
[2017-05-29] MEDS ORDERED: ONDANSETRON HCL INJ/PF 4 MG/2 ML SDV IV PRN (13:21)
[2017-05-29] MEDS ORDERED: OXYCODONE HCL IR 5 MG TABLET PO PRN (13:21)
[2017-05-29] MEDS ORDERED: MORPHINE SULFATE 10 MG/ML INJ IV PRN ×3 (13:21)
--- NOTE | 2017-05-29 13:21 | Operative Report ---
Operative Report DATE OF SURGERY: 05/27/17 PREOPERATIVE DIAGNOSIS: Right prosthetic hip instability OPERATION: Right hip revision. Sciatic neural lysis SURGEON: ANGEL SOUSA ANESTHESIA: Spinal TISSUE REMOVED OR ALTERED: Cultures to microbiology ESTIMATED BLOOD LOSS: 500 PROCEDURE: Implants used: Femur: bioMet unchanged Acetabular shell: 64 mm [place] coated multihole hemispherical shell Liner: 40 Millimeter flat cross-linked polyethylene liner Head: Millimeter chrome cobalt head +3 neck extension, Biomet The patient is placed in a left lateral decubitus position on the operating table. The right lower extremity and hindquarter is prepped and draped in a sterile fashion. A curvilinear incision was made over the greater trochanter a posterior approach the hip was taken. Sciatic nerve is identified in the sciatic notch and traced down to the gluteal sling. Protected throughout the case. The 40 millimeter femoral head i dislocated is removed uneventfully. It is a standard neck. It is clear that the femoral anteversion is at best neutral. Examination of the acetabular liner reveals that this is a high wall liner with its apex posterior superior. Therefore my initial surgical plan which was potentially to increase the head size, put a high wall liner, and potentially increase the neck length was really not going to effectively deal with the patient's recurrent instability. Acetabulum was probably retroverted 10-15. I then made a decision to proceed with an acetabular revision Attention was next turned to the acetabulum. Acetabular knives were used to remove the existing acetabular shell. . The acetabulum was then prepared using a series of hemispherical reamers until a 63 millimeters reamer is seated. Subsequently a 64 millimeters Otf titanium hemispherical shell is impacted into position and secured with one screw. A standard flat 40 mm millimeters cross-link liner is impacted into the shell. A trial reduction was now performed using a 40 millimeters head with +3 neck. Preoperative leg length was recreated and is excellent anterior posterior stability. A decision was made to proceed with the above construct. All trial implants were removed. The wound is irrigated with pulsed lavage. Findings as previously. The hip was dislocated one last time and the final chrome-cobalt head is impacted onto the trunnion. The hip was reduced. Wound is copiously irrigated with pulsed lavage. Sent closed in layers using interrupted Vicryl followed by venkat. A sterile dressing is applied and the patient's returned to recovery room in satisfactory patient.
[2017-05-29] MEDS ORDERED: FUROSEMIDE INJ/PF 40 MG/4 ML SDV ONE (13:40)
[2017-05-29] MEDS ORDERED: LORAZEPAM INJ 2 MG/1 ML VIAL IV PRN (13:55)
[2017-05-29] MEDS: LISINOPRIL 10 MG TABLET PO SCH (14:07)
[2017-05-29] MEDS: HYDROCHLOROTHIAZIDE 12.5 MG CAPSULE PO SCH (14:07)
--- NOTE | 2017-05-29 15:37 | RADIOLOGY REPORT (SQ) ---
EXAM DESCRIPTION: PELVIS AP COMPLETED DATE/TIME: 05/29/2017 3:08 pm REASON FOR STUDY: Post Op Long Cassette in PACU COMPARISON: None. NUMBER OF VIEWS: One view(s). TECHNIQUE: Digital radiographic images of the right hip post-procedure. LIMITATIONS: None. FINDINGS: BONES: No worrisome or unexpected findings post-procedure. DEVICE: Total hip replacement. Components of the device in appropriate location. SOFT TISSUES: No worrisome findings. Expected postoperative soft tissue changes. IMPRESSION: SATISFACTORY POSTOPERATIVE RIGHT HIP. TECHNICAL DOCUMENTATION: JOB ID: [id number] [employer]- All Rights Reserved
[2017-05-29] MEDS ORDERED: RINGERS SOLUTION 1,000 ML IV PRN (16:13)
[2017-05-29] MEDS ORDERED: TRANEXAMIC ACID INJ/PF 1,000 MG/10 ML SDV IV ONE (16:30)
[2017-05-29 16:33] LABS: HEMATOCRIT 36.5 % (37.9-51.0); HEMOGLOBIN 12.3 g/dL (13.5-17.0); HGB HCT DIFFERENCE 0.4; MEAN CORPUSCULAR HGB CONC 33.8 g/dL (32.0-36.0); MEAN CORPUSCULAR VOLUME 92 fl (80-97); RED BLOOD COUNT 3.98 10^6/uL (4.35-5.55); WHITE BLOOD COUNT 11.1 10^3/uL (4.0-10.5)
[2017-05-29] MEDS ORDERED: NITROGLYCERIN 50 MG/D5W 250 ML IV PRN (16:43)
[2017-05-29] MEDS ORDERED: NITROGLYCERIN/D5W 50 MG/250 ML RTUINJ IV ONE (16:48)
[2017-05-29 16:49] LABS: ANION GAP 8 (5-19); BLOOD UREA NITROGEN 12 mg/dL (7-20); CALCIUM 7.6 mg/dL (8.4-10.2); CARBON DIOXIDE 26 mmol/L (22-30); CHLORIDE 96 mmol/L (98-107); CREATININE RESULT 0.61 mg/dL (0.52-1.25); GLUCOSE 117 mg/dL (75-110); POTASSIUM 3.9 mmol/L (3.6-5.0); SODIUM 129.6 mmol/L (137-145)
--- NOTE | 2017-05-29 17:34 | CONSULTATION REPORT E ---
Consultation Report NAME: KEVIN MUNIZ : 1945 AGE: 71Y DATE: 05/29/2017 ROOM: 610 A TO: JOE NASH NP ATTENDING: Dr. Solano. CONSULTING MIXING MACHINE OPERATOR: Dr. Sandoval. REASON FOR CONSULTATION: To aid in the medical management of postoperative patient. HISTORY OF PRESENT ILLNESS: The patient is a 71-year-old male with a past medical history of hypertension, coronary artery disease, mitral valve replacement, and chronic atrial fibrillation not on chronic anticoagulation. The patient presented to the emergency department with a chief complaint of hip pain. The patient had been working in his yard when he felt that he had twisted his hip, possibly racking leaves. The patient stated that he had an abrupt onset of pain. The patient was found to have a dislocated right hip. Attempts were made for postreduction of the dislocation in the operating room, however, it was not successful. The patient went to the OR today to have an open reduction under anesthesia with Dr. Solano. The patient had previously denied any heart palpitations or rapid heartbeat. The patient is not on any irina agents but does have atrial fibrillation which seems to be a heart rate of around 100. The patient had denied any chest pain, no discomfort, no anginal symptoms. The patient apparently had a stress test 2 years ago which was reported negative. The patient stays relatively active and does have good activity tolerance. The patient had been given acceptable risk for surgery and has been seen cardiology. While in the OR today the patient did have significant blood loss approximately 500 mL, subsequently the patient became hypotensive and was started on Levophed. The patient also became tachycardic with a heart rate around 120 and a Cardizem drip was added as well while in the PACU the patient was in the process of receiving blood when the patient has been referred to the hospitalist to aid in management. PAST MEDICAL HISTORY: 1. Coronary artery disease. 2. Severe mitral regurgitation. 3. Chronic atrial fibrillation without chronic anticoagulation. 4. Hypertension. 5. History of cerebral aneurysm. PAST SURGICAL HISTORY: 1. Craniotomy for resection of intercerebral aneurysm without any sequelae of TIA, CVA, dysphagia, or aphasia. 2. Benign tumor excision of the left neck. 3. Cardiac catheterization. 4. Coronary artery bypass grafting x2. 5. Mitral valve repair and replacement in the past. 6. Dislocation of the right hip with open surgical reduction. 7. Cataract surgery. ALLERGIES: CONTRAST. HOME MEDICATIONS: 1. Glucosamine and chondroitin 1 tablet p.o. daily. 2. Lisinopril/hydrochlorothiazide 20/12.5 mg 1 tablet p.o. daily. 3. Saw [place] 450 mg p.o. daily. CURRENT MEDICATIONS: 1. Vancomycin 1 g q.24 hours. 2. Benadryl 25 mg IV q.6 hours p.r.n. 3. Levophed drip. 4. Xarelto 10 mg p.o. q. hour of sleep. 5. Cardizem drip. 6. Lisinopril 20 mg p.o. daily. 7. Acetaminophen 650 mg p.o. q.4 hours p.r.n. SOCIAL HISTORY: The patient does reside at home with his . Denies any tobacco use. He has actually never smoked. There is a questionable history of heavy alcohol use. No history of illicit drug use. The patient's surrogate decision maker is his , Clare, she may be reached at [phone]. The patient himself is retired. FAMILY MEDICAL HISTORY: Strongly positive for early coronary artery disease in family members. The patient's father is at age 47. REVIEW OF SYSTEMS: A full review of systems cannot be appreciated at this time given the patient's postoperative status and sedation. However, the patient is able to state that he is not in any pain. PHYSICAL EXAMINATION: GENERAL: On examination the patient is a well-developed, well-nourished, 71-year-old male who will awaken but is quite groggy. Does not appear to be in any acute distress. VITAL SIGNS: Temperature 98.7, pulse 95, respirations 19, blood pressure is currently 143/61, oxygen saturation is 98% on 4 L nasal cannula. SKIN: Warm and dry; no rash, not diaphoretic. HEENT: Pupils are equal, round, reactive to light and accommodation. Conjunctivae pale. There is no JVP. CARDIOVASCULAR: Heart is irregularly irregular, tachycardic. No rub. CHEST: Clear, symmetrical, unlabored. ABDOMEN: Soft, nontender, nondistended. EXTREMITIES: No clubbing, cyanosis, edema, or peripheral signs of embolization. Pedal pulses +2 noted bilaterally. Extremities are warm. PSYCHIATRIC: Unable to fully assess. NEUROLOGIC: Unable to cooperative. DIAGNOSTICS: Lab values are as follows hematology on 05/28/2017; WBC is 8.3, hemoglobin 11.7, hematocrit 34.6, platelet count is 142,000. Coagulation 05/28/2017; PT is 15.0, INR 1.1. Chemistry obtained on 05/28/2017; sodium 136, potassium 4.9, chloride 102, carbon dioxide 28, BUN 17, creatinine 0.76, glucose 99, calcium 8.5, bilirubin 0.9, AST 36, ALT 45, alk-phos 88. CK 399, CK-MB is 4.27, troponin is 0.012. Total protein is 6.7, albumin 3.8. Microbiology; 1 culture obtain on 05/29/2017 is pending. Pelvis x-ray obtained on 05/29/2017 reveals a satisfactory postoperative hip. Chest x-ray obtained on 05/27/2017 reveals no acute radiographic finding of the chest. IMPRESSION AND PLAN: 1. Hypovolemic shock secondary to surgical blood losses. The patient has been typed and crossed. Continue to transfuse 2 units of packed red blood cells. We will repeat CBC after transfusion. The patient's pressure has improved, hopefully this will improve by sheer volume, however, the patient currently is on Levophed. We will titrate accordingly and follow. 2. Atrial fibrillation with rapid ventricular response. The patient's tachycardia most likely is due to volume loss. Once again we will transfuse and follow. 3. Coronary artery disease. Do appreciate cardiology's input. 4. A questionable alcohol dependency. We will add p.r.n. benzodiazepines, monitor closely. We will also supplement the vitamins. CODE STATUS: The patient is a Full Code. DISPOSITION: Depending on the patient's symptomatology and diagnostic findings will reevaluate as needed. Will transfer the patient to ICU and follow. And as always the hospitalist would like to thank the orthopedist for allowing us to participate in the care of this patient. TIME SPENT: On this consultation, including assessment, plan, physical examination, attend to patient education, speciality collaboration is 40 minutes. DICTATING PHYSICIAN: JOE NASH NP [id number] PHY#: [id number] ID: [id number] JOB#: [id number] ACCT: [id number] cc:JOE NASH NP > SILVER
[2017-05-29] MEDS: SENNOSIDES/DOCUSATE 8.6-50 MG 1 EACH TABLET PO SCH (17:38)
[2017-05-29] MEDS ORDERED: IBUPROFEN 800 MG in NORMAL SALINE 250 ML IV SCH (18:00)
[2017-05-29] MEDS ORDERED: NORMAL SALINE 1000 ML 1,000 ML with POTASSIUM CHLORIDE 20 MEQ, MAGNESIUM SULFATE 8 MEQ,... IV SCH ×5 (18:00)
[2017-05-29] MEDS: RIVAROXABAN 10 MG TABLET PO SCH (21:17)
--- NOTE | 2017-05-29 22:08 | PROGRESS NOTE E ---
Progress Note NAME: KEVIN MUNIZ : 1945 AGE: 71Y DATE: 05/29/2017 ROOM: [facility] SUBJECTIVE: The patient underwent surgery but as per anesthesia there was some blood loss and the patient had become tachycardic with a heart rate of 144. He was started on a Cardizem drip in the operating room and he dropped his blood pressure and at that time the patient was started on Levophed. I saw the patient in recovery. It was not clear as to how much Levophed he was on since it was not in a pump. I asked the nurse to stop the Levophed and transfer the patient to the ICU. In the ICU the patient's heart rate was in the 110s and blood pressure was 180 systolic at one time and subsequently 159. I increased the Cardizem to 5 mg per hour and subsequently I asked the nurse to start the patient on IV nitroglycerin. The patient denies any chest pain or discomfort. There is no shortness of breath. There is no PND, orthopnea. He continues to be in atrial fibrillation with a ventricular response around low 100s. There are no TIA or CVA symptoms. The patient denies any dizziness or syncope or near syncope. Note that the patient had the surgery under spinal anesthesia. The patient also postanesthesia care unit during recovery due to the blood loss received 2 units of packed RBCs, which helped the patient's blood pressure and heart rate. OBJECTIVE: VITAL SIGNS: On examination when I *------* the patient is afebrile, his pulse is 90 per minute, blood pressure 150/79, respirations are 21 per minute, O2 saturations are 99% on 4 L nasal cannula. HEAD: Atraumatic/normocephalic. EYES: Pupils are equal, round, regular, reactive to light and accommodation. Extraocular movements are normal. There is no conjunctival pallor. There is no scleral icterus. EARS, NOSE, AND THROAT: Negative. NECK: Supple. There is no JVD. Carotids are equal. There is no bruit. There is no lymphadenopathy. There is no goiter. Trachea is central. LUNGS: Clear to auscultation and percussion. HEART: S1, S2 is heard. S1 is of variable intensity. There is no S3 gallop. There is no S4 gallop. There are murmurs of mitral regurgitation heard in the apex with radiation to the left axilla and also significant tricuspid regurgitation murmur heard. There is no rub. ABDOMEN: Soft, nontender. There is no hepatosplenomegaly. Bowel sounds are well heard. There are no tenderness areas or masses. There is no rebound, guarding, or rigidity. EXTREMITIES: Femorals are slightly diminished. There is no femoral bruits. Leg pulses are well felt. There is no pedal edema. There is no DVT or cellulitis. There is no cyanosis or clubbing. There is no calf tenderness. The dressing in the right hip is at present dry. CENTRAL NERVOUS SYSTEM: The patient is conscious, slightly drowsy due to anesthesia but oriented x3 and with no focal deficits. PSYCHIATRIC: The patient's judgement and insight are intact despite of his drowsiness. His affect appears to be slightly drowsy. He is not agitated. FLUID BALANCE: The patient's 24-hour intake has been 3650 mL, output is 2375 mL. LABORATORY DATA: The patient's white count is 9100, hemoglobin 12.3, hematocrit 36.5, and his platelet count is 107,000. The patient's sodium had gone down to 129.6, potassium 3.9, chloride is low at 93, CO2 is 26, the patient's BUN is 12, creatinine 0.61, GFR is greater than 60, glucose is 117, calcium is 7.6. IMPRESSION: 1. STATUS POST SURGERY AND OPEN REDUCTION OF RIGHT HIP DISLOCATION. 2. BLOOD LOSS DUE TO SURGERY. The patient had received 2 units of packed RBCs. 3. CORONARY ARTERY DISEASE, NO HISTORY OF [place], NO HISTORY OF ANGINAL SYMPTOMS FOR A LONG TIME. At present the patient is stable in spite of his drop in blood pressure he has not had any anginal symptom. 4. TWO-VESSEL CORONARY ARTERY BYPASS GRAFT SURGERY. The grafted vessel is not known. 5. HISTORY OF MITRAL VALVE REPAIR. THE PATIENT WITH MODERATE MITRAL REGURGITATION. 6. CHRONIC ATRIAL FIBRILLATION. At present rate is much improved on Cardizem. We will increase the Cardizem IV to 5 mg/hour as in the infusion. 7. HYPERTENSION. Note earlier the patient required Levophed for a low blood pressure, at present blood pressure is high. We will start the patient on IV nitroglycerin which will also help the patient's coronary artery disease in view of the recent drop in blood pressure. 8. MODERATE MITRAL REGURGITATION. 9. SEVERE TRICUSPID REGURGITATION. 10. SEVERE PULMONARY HYPERTENSION. RECOMMENDATIONS: We will order an EKG for the morning. We will also order CBC and watch his hemoglobin closely. We will also get cardiac enzymes in the morning. All of the above discussed with the patient and the patient's and with the other caregiving providers on the case. Note at least 40 minutes time spent on the patient with more than 50% of the time spent on direct patient care. Also note that this involved highly complex medical decision-making. In view of the patient's hypotension, history of coronary artery disease, history of bypass graft surgery, and history of moderate mitral regurgitation post mitral valve repair, and history of severe tricuspid regurgitation and severe pulmonary hypertension. We will follow with you. Discussed with the patient and the patient's at length. DICTATING PHYSICIAN: WILLOW ADAMS M.D. [id number] PHY#: [id number] ID: [id number] JOB#: [id number] ACCT: [id number] cc: >
[2017-05-29] MEDS: ACETAMINOPHEN 325 MG TABLET PO PRN (23:45)
[2017-05-30] MEDS ORDERED: VANCOMYCIN HCL 1,000 MG in DEXTROSE 5%-WATER 250 ML IV ONE (01:30)
[2017-05-30] MEDS ORDERED: VANCOMYCIN HCL INJ 1000 MG VIAL ONE (01:43)
[2017-05-30 04:33] LABS: HEMATOCRIT 33.5 % (37.9-51.0); HEMOGLOBIN 11.5 g/dL (13.5-17.0); MEAN CORPUSCULAR HEMOGLOBIN 31.5 pg (27.0-33.4); MEAN CORPUSCULAR HGB CONC 34.2 g/dL (32.0-36.0); MEAN CORPUSCULAR VOLUME 92 fl (80-97); RED BLOOD COUNT 3.65 10^6/uL (4.35-5.55); RED CELL DISTRIBUTION WIDTH 13.9 % (11.5-14.0)
[2017-05-30 04:57] LABS: ANION GAP 7 (5-19); BLOOD UREA NITROGEN 13 mg/dL (7-20); CALCIUM 7.5 mg/dL (8.4-10.2); CARBON DIOXIDE 26 mmol/L (22-30); CHLORIDE 97 mmol/L (98-107); CREATININE RESULT 0.66 mg/dL (0.52-1.25); GLUCOSE 118 mg/dL (75-110); MAGNESIUM 1.7 mg/dL (1.6-2.3); POTASSIUM 3.8 mmol/L (3.6-5.0); SODIUM 130.4 mmol/L (137-145)
[2017-05-30] MEDS: MORPHINE SULFATE 10 MG/ML INJ IV PRN (05:00)
[2017-05-30] MEDS: LANSOPRAZOLE 30 MG TAB.RAP.DR PO SCH (05:04)
[2017-05-30] MEDS: RINGERS SOLUTION,LACTATED 1,000 ML IV PRN ×2 (06:05→17:09)
[2017-05-30] MEDS: ACETAMINOPHEN 325 MG TABLET PO PRN (06:27)
--- NOTE | 2017-05-30 07:15 | EKG REPORT ---
SEVERITY:- ABNORMAL ECG - ATRIAL FIBRILLATION LAD, CONSIDER LEFT ANTERIOR FASCICULAR BLOCK NONSPECIFIC T ABNORMALITIES, LATERAL LEADS : Confirmed by: Carlos Patrick 30-May-2017 07:14:36
--- NOTE | 2017-05-30 07:19 | PDOC PROGRESS REPORT ---
Subjective Progress Note for:: 05/30/17 Subjective:: Patient is requesting a diet Physical Exam Vital Signs: Temp Pulse Resp BP Pulse Ox 37.2 C 84 20 114/65 96 05/30/17 03:57 05/30/17 03:57 05/30/17 06:00 05/30/17 05:45 05/30/17 06:00 Intake & Output 05/29/17 05/30/17 05/31/17 06:59 06:59 06:59 Intake Total 3650 7778 Output Total 5515 5630 Balance 1275 2148 Weight 88.9 kg General appearance: PRESENT: no acute distress, thin Head exam: PRESENT: normocephalic Eye exam: PRESENT: EOMI Respiratory exam: PRESENT: unlabored Cardiovascular exam: PRESENT: tachycardia Pulses: PRESENT: +1 pedal pulses bilateral Vascular exam: PRESENT: normal capillary refill GI/Abdominal exam: PRESENT: soft Rectal exam: PRESENT: deferred Extremities exam: PRESENT: other - Dressing with minor drainage proximally. Distal neurovascular examination of the right lower extremities intact. Potentially mild leg length inequality. Neurological exam: PRESENT: alert, awake, oriented to person, oriented to place , oriented to time, oriented to situation. ABSENT: motor sensory deficit Psychiatric exam: PRESENT: appropriate affect, normal mood. ABSENT: homicidal ideation, suicidal ideation Skin exam: PRESENT: dry, intact, warm. ABSENT: cyanosis, rash Results Laboratory Results: 05/30/17 04:10 05/30/17 04:10 05/28/17 05/28/17 05/28/17 04:51 04:51 04:51 WBC 8.0 D RBC 3.63 L Hgb 11.7 L Hct 34.6 L MCV 95 MCH 32.3 MCHC 33.9 RDW 13.2 Plt Count 142 L Seg Neutrophils % 79.0 H Lymphocytes % 13.1 Monocytes % 7.3 Eosinophils % 0.4 Basophils % 0.2 Absolute Neutrophils 6.3 Absolute Lymphocytes 1.0 Absolute Monocytes 0.6 Absolute Eosinophils 0.0 Absolute Basophils 0.0 Sodium 136.0 L Potassium 3.9 Chloride 102 Carbon Dioxide 28 Anion Gap 6 BUN 17 Creatinine 0.76 Est GFR ( Amer) > 60 Est GFR (Non-Af Amer) > 60 Glucose 99 Calcium 8.5 Magnesium Blood Type O POSITIVE Antibody Screen NEGATIVE 05/29/17 05/29/17 05/30/17 16:26 16:26 04:10 WBC 11.1 H 9.0 RBC 3.98 L 3.65 L Hgb 12.3 L 11.5 L Hct 36.5 L 33.5 L MCV 92 92 MCH 31.0 31.5 MCHC 33.8 34.2 RDW 14.0 13.9 Plt Count 107 L 106 L Seg Neutrophils % Lymphocytes % Monocytes % Eosinophils % Basophils % Absolute Neutrophils Absolute Lymphocytes Absolute Monocytes Absolute Eosinophils Absolute Basophils Sodium 129.6 L Potassium 3.9 Chloride 96 L Carbon Dioxide 26 Anion Gap 8 BUN 12 Creatinine 0.61 Est GFR ( Amer) > 60 Est GFR (Non-Af Amer) > 60 Glucose 117 H Calcium 7.6 L Magnesium Blood Type Antibody Screen 05/30/17 04:10 WBC RBC Hgb Hct MCV MCH MCHC RDW Plt Count Seg Neutrophils % Lymphocytes % Monocytes % Eosinophils % Basophils % Absolute Neutrophils Absolute Lymphocytes Absolute Monocytes Absolute Eosinophils Absolute Basophils Sodium 130.4 L Potassium 3.8 Chloride 97 L Carbon Dioxide 26 Anion Gap 7 BUN 13 Creatinine 0.66 Est GFR ( Amer) > 60 Est GFR (Non-Af Amer) > 60 Glucose 118 H Calcium 7.5 L Magnesium 1.7 Blood Type Antibody Screen Impressions: Chest X-Ray 05/27/17 00:00 IMPRESSION: NO ACUTE RADIOGRAPHIC FINDING IN THE CHEST. Hip/Pelvis X-Ray 05/27/17 00:00 IMPRESSION: There is been bilateral hip replacements. The right prosthesis is dislocated as described. Pelvis X-Ray 05/29/17 13:23 IMPRESSION: SATISFACTORY POSTOPERATIVE RIGHT HIP. Status: Imported from PACS Assessment & Plan - Diagnosis (1) Recurrent dislocation, right hip Is this a current diagnosis for this admission?: YesPlan: 71-year-old white male status post right revision hip arthroplasty postop day 1. Postoperative course was notable for hemodynamic instability presumably because of intraoperative blood loss but also because of his underlying cardiac issues. Seem to have stabilized at this point. Anticipate that he will be transferred to the floor today and begin physical therapy and weightbearing as tolerated basis. - Time Time Spent with patient: 15-24 minutes Anticipated discharge: Home with Homehealth Within: within 48 hours
[2017-05-30] MEDS ORDERED: VANCOMYCIN HCL 0 MG in DEXTROSE 5%-WATER 250 ML IV NR (07:45)
[2017-05-30] MEDS ORDERED: ACETAMINOPHEN 650 MG SUPP.RECT PR PRN (07:45)
[2017-05-30] MEDS ORDERED: RINGERS SOLUTION,LACTATED 500 ML IV PRN (08:04)
--- NOTE | 2017-05-30 09:08 | PROGRESS NOTE E ---
Progress Note NAME: KEVIN MUNIZ : 1945 AGE: 71Y DATE: 05/30/2017 ROOM: [facility] SUBJECTIVE: The patient is currently sitting up in bed. The patient did become febrile overnight and a little more tachycardiac. He is currently on 5 mcg of Cardizem. The patient was weaned off of Levophed and actually had rebound hypertension and was transiently on a nitro drip. Do appreciate Cardiology's input with this. This morning the patient denies any nausea or vomiting. No diarrhea, shortness of breath, dizziness, or sputum production but has felt fevered. The patient states that his hip is much improved and is looking forward to therapy. The patient is currently mapping at 70% by Align and no other concerns are voiced at this time. REVIEW OF SYSTEMS: Rest of the review of systems negative. MEDICATIONS: Have been reviewed. PHYSICAL EXAMINATION: GENERAL: The patient is a 71-year old male who is awake, alert, and oriented to person, place, time, and situation. He is verbal, conversational, and does not appear to be in acute distress. VITAL SIGNS: Temperature 98.1, pulse 126, respirations 22, blood pressure 97/54 by Align, and oxygen saturation is 98% on 4 L nasal cannula. SKIN: Warm and dry. No rash. Not diaphoretic. HEENT: Pupils equal, round, reactive to light and accommodation. Conjunctivae are pink. No JVP. CARDIOVASCULAR: Heart is tachycardiac, irregularly irregular. There is no rub. CHEST: Clear, symmetrical, unlabored. ABDOMEN: Soft, nontender, nondistended. BACK: No CVA tenderness or sacral edema. EXTREMITIES: No clubbing, cyanosis, or edema. The patient's right lower extremity is a little cooler than the left but 1+ pedal pulses noted bilaterally. GENITOURINARY: [place] is draining dark yellow urine. PSYCHIATRIC: Appropriate affect. Pleasant mood. DIAGNOSTICS: Lab values are as follows: Hematology obtained on 05/30/2017: WBCs are 9.0, hemoglobin is 11.5, hematocrit is 33.5, platelet count is 106,000. Coagulation obtained on 05/28/2017: PT is 15.0, INR is 1.1 Chemistry obtained on 05/30/2017: Sodium is 130, potassium 3.8, chloride is 97, carbon dioxide 26, BUN 13, creatinine is 0.66, glucose 118, calcium is 7.5, magnesium is 1.7. IMPRESSION AND PLAN: 1. HYPOVOLEMIC SHOCK SECONDARY TO SURGICAL BLOOD LOSSES. The patient is much improved with 2 units of packed red blood cells. No longer requiring vasopressors. Repeat CBC is improved. Blood pressures are in decent recent range with a MAP between 65-75 at this time. The patient does appear a little on the dry side given color of his urine and so forth. Will give 0.5 L bolus and monitor closely. 2. ATRIAL FIBRILLATION WITH RAPID VENTRICULAR RESPONSE. The patient's tachycardia was most likely due to volume depletion as well as infectious process. Currently on 5 mcg of Cardizem. Will see how his heart rate does with the bolus. May need an increase. Do appreciate Cardiology's input with this. 3. SIRS VERSUS SEPSIS. The patient has been tachycardiac as well as febrile overnight. Will start the patient on vancomycin and anaya culture as well as obtain chest x-ray and follow. 4. CORONARY ARTERY DISEASE. Do appreciate Cardiology's input with this. Have been judicious with fluid administration. 5. YESTERDAY THERE WAS A QUESTION OF POSSIBLE ALCOHOL DEPENDENCY IN THE PACU HISTORY. Have discussed this with the patient in detail. He denies this other than occasional wine consumption. Denies any daily alcohol use or any history of abuse. Therefore will discontinue B vitamins. 6. HYPONATREMIA. Will hold HCTZ. DISPOSITION: The patient is a FULL CODE. Pending patient's symptomatology and diagnostic findings, will reevaluate as needed. Will maintain ICU status now given the patient's tedious volume as well as tachycardia. Time spent on this followup including assessment, plan, physical examination, patient education, and specialty collaboration is 30 minutes. DICTATING PHYSICIAN: JOE NASH NP [id number] PHY#: [id number] ID: [id number] JOB#: [id number] ACCT: [id number] cc: > MAXWELLD
[2017-05-30] MEDS ORDERED: MAG HYDROX/AL HYDROX/SIMETH SUSP 30 ML UDCUP PO PRN (09:11)
[2017-05-30] MEDS ORDERED: ONDANSETRON HCL INJ/PF 4 MG/2 ML SDV IV PRN (09:12)
--- NOTE | 2017-05-30 09:21 | RADIOLOGY REPORT (SQ) ---
EXAM DESCRIPTION: CHEST SINGLE VIEW COMPLETED DATE/TIME: 05/30/2017 8:23 am REASON FOR STUDY: Fever, sepsis COMPARISON: 05/27/2017 EXAM PARAMETERS: NUMBER OF VIEWS: One view. TECHNIQUE: Single frontal radiographic view of the chest acquired. RADIATION DOSE: NA LIMITATIONS: None. FINDINGS: LUNGS AND PLEURA: No opacities, masses or pneumothorax. No pleural effusion. MEDIASTINUM AND HILAR STRUCTURES: No masses. Contour normal. HEART AND VASCULAR STRUCTURES: Heart normal in size. Normal vasculature. BONES: No acute findings. HARDWARE: Old sternotomy OTHER: No other significant finding. IMPRESSION: NO ACUTE RADIOGRAPHIC FINDING IN THE CHEST. TECHNICAL DOCUMENTATION: JOB ID: [id number]
[2017-05-30] MEDS: VANCOMYCIN HCL 1,000 MG in DEXTROSE 5%-WATER 250 ML IV SCH ×2 (09:42→17:09)
[2017-05-30] MEDS: PRENATAL VITAMIN W-O CA NO5/FE FUMARATE/FA CAPSULE PO SCH (09:43)
[2017-05-30] MEDS: LISINOPRIL 10 MG TABLET PO SCH (09:44)
[2017-05-30] MEDS: SENNOSIDES/DOCUSATE 8.6-50 MG 1 EACH TABLET PO SCH ×2 (09:44→17:06)
[2017-05-30] MEDS ORDERED: LORAZEPAM INJ 2 MG/1 ML VIAL IV PRN (14:03)
[2017-05-30] MEDS ORDERED: AMLODIPINE BESYLATE 2.5 MG TABLET PO ONE (14:15)
--- NOTE | 2017-05-30 14:48 | PROGRESS NOTE E ---
Progress Note NAME: KEVIN MUNIZ : 1945 AGE: 71Y DATE: 05/30/2017 ROOM: [facility] SUBJECTIVE: Note that the patient is awake, alert and oriented x3 without complaints. He denies any shortness of breath. There is no PND, orthopnea or leg edema. There are no anginal symptoms. There are no TIA or CVA symptoms. Note that the patient is off pressors and he is also off IV nitroglycerin since his blood pressure is controlled. He is on a Cardizem drip at 2.5 mg/hr. His atrial fibrillation seems reasonably controlled. There are no further bleeding. OBJECTIVE: GENERAL: On examination, the patient is in no acute distress. Earlier last night he was febrile VITAL SIGNS: Earlier last night he was febrile with a temperature of 102 degrees Fahrenheit. At present he is afebrile with a temperature of 98.4 degrees Fahrenheit. His pulse is 100 per minute. Blood pressure is 117/68, respirations are 17 per minute, O2 saturations are 94% on room air. HEAD: Atraumatic/normocephalic. EYES: Pupils are equal, round, regular, reactive to light and accommodation. Extraocular movements are normal. There is no conjunctival pallor. There is no scleral icterus. EARS, NOSE, AND THROAT: Negative. NECK: Supple. There is no JVD. Carotids are equal. There is no bruit. There is no lymphadenopathy. There is no goiter. Trachea is central. LUNGS: Clear to auscultation and percussion. HEART: S1, S2 is heard. S1 is of variable intensity. There is no S3 gallop. There is no S4 gallop. There is a murmur of mitral regurgitation heard in the apex with radiation to the left axilla and also murmur of tricuspid regurgitation heard. There is no rub. ABDOMEN: Soft, nontender. There is no hepatosplenomegaly. Bowel sounds are well heard. There are no tenderness areas or masses. There is no rebound, guarding, or rigidity. EXTREMITIES: Femorals are slightly diminished. There is no femoral bruit. Leg pulses are diminished. There is no pedal edema. There is no DVT or cellulitis. There is no cyanosis or clubbing. There is no calf tenderness. The dressing in the right hip is at present dry. CENTRAL NERVOUS SYSTEM: The patient is conscious, awake and alert, oriented x3 with no focal deficits. PSYCHIATRIC: The patient's judgement and insight are intact. His affect is normal. FLUID BALANCE: The patient's 24-hour intake is 7778 mL; output is 5630 mL. LABORATORY DATA: The patient's chest x-ray shows no acute changes and no evidence of pneumonia or heart failure. His white count is 9100. His hemoglobin is stable at 11.5, hematocrit is 33.5, platelet count is 106,000. The patient's sodium is 130.4, potassium 3.8, chloride 97, CO2 is 26, the patient's BUN is 13, creatinine 0.66, GFR is greater than 62, glucose is 118, calcium is 7.5, magnesium 1.7. His troponin I is negative at 0.046. The patient's EKG shows atrial fibrillation. His heart rate is 97 beats per minute. There is left anterior fascicular block and nonspecific T abnormalities in the lateral leads which are minor. IMPRESSION: 1. STATUS POST SURGERY AND OPEN REDUCTION OF RIGHT HIP DISLOCATION. 2. BLOOD LOSS DUE TO SURGERY. The patient had received 2 units of packed RBCs in the recovery room. At present hemoglobin is stable. 3. CORONARY ARTERY DISEASE, NO HISTORY OF IN, NO ANGINAL SYMPTOMS, NO EVIDENCE OF IN. 4. TWO-VESSEL CORONARY ARTERY BYPASS GRAFT SURGERY. The grafted vessel is not known. 5. 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 6. HISTORY OF MITRAL VALVE REPAIR. The patient with moderate mitral regurgitation. 7. CHRONIC ATRIAL FIBRILLATION. Would recommend discontinuing the patient's Cardizem and see what the rate and depending on the rate, we will start the patient either on Cardizem p.o. or SAMUEL inhibitors if the heart rate is controlled. 8. MODERATE MITRAL REGURGITATION. 9. SEVERE TRICUSPID REGURGITATION. 10. SEVERE PULMONARY HYPERTENSION. RECOMMENDATIONS: As mentioned earlier, continue to watch the patient's CBC, stop the patient's Cardizem drip, continue vancomycin, continue lansoprazole, continue lisinopril at 20 mg p.o. daily. We will also start the patient on Norvasc 2.5 mg p.o. q.12 h. for pulmonary hypertension. The patient is on Xarelto 10 mg p.o. at bedtime for DVT prophylaxis. Will follow with you. Discussed with the patient and the patient's the lab tests including the evidence that there is no evidence of IN. Note 30 minutes time spent on the patient with more than 50% of the time spent on direct patient care. Also medications were reviewed and adjusted. Note this is a highly complex medical decision-making case. Thanking you. DICTATING PHYSICIAN: WILLOW ADAMS M.D. [id number] PHY#: [id number] ID: [id number] JOB#: [id number] ACCT: [id number] cc: >
[2017-05-30] MEDS: RIVAROXABAN 10 MG TABLET PO SCH (21:06)
[2017-05-30] MEDS ORDERED: AMLODIPINE BESYLATE 2.5 MG TABLET PO SCH (22:00)
[2017-05-31] MEDS: VANCOMYCIN HCL 1,000 MG in DEXTROSE 5%-WATER 250 ML IV SCH (02:10)
[2017-05-31 04:26] LABS: HEMATOCRIT 30.2 % (37.9-51.0); HEMOGLOBIN 10.2 g/dL (13.5-17.0); HGB HCT DIFFERENCE 0.4; MEAN CORPUSCULAR HEMOGLOBIN 31.3 pg (27.0-33.4); MEAN CORPUSCULAR HGB CONC 33.9 g/dL (32.0-36.0); MEAN CORPUSCULAR VOLUME 93 fl (80-97); RED BLOOD COUNT 3.27 10^6/uL (4.35-5.55); RED CELL DISTRIBUTION WIDTH 13.6 % (11.5-14.0); WHITE BLOOD COUNT 8.1 10^3/uL (4.0-10.5)
[2017-05-31 04:33] LABS: ANION GAP 6 (5-19); BLOOD UREA NITROGEN 15 mg/dL (7-20); CALCIUM 7.3 mg/dL (8.4-10.2); CARBON DIOXIDE 27 mmol/L (22-30); CHLORIDE 95 mmol/L (98-107); CREATININE RESULT 0.62 mg/dL (0.52-1.25); GLUCOSE 125 mg/dL (75-110); MAGNESIUM 1.7 mg/dL (1.6-2.3); POTASSIUM 3.5 mmol/L (3.6-5.0); SODIUM 128.2 mmol/L (137-145)
[2017-05-31] MEDS: LANSOPRAZOLE 30 MG TAB.RAP.DR PO SCH (05:25)
[2017-05-31] MEDS ORDERED: POTASSIUM CHLORIDE 10 MEQ TABLET.SA PO ONE (08:00)
[2017-05-31] MEDS: ACETAMINOPHEN 325 MG TABLET PO PRN (08:40)
[2017-05-31] MEDS: SENNOSIDES/DOCUSATE 8.6-50 MG 1 EACH TABLET PO SCH (08:45)
[2017-05-31] MEDS ORDERED: DILTIAZEM HCL/D5W 125 MG/125 ML RTUINJ IV ONE (09:23)
[2017-05-31 09:29] LABS: CREATINE KINASE MB 1.01 ng/mL (<4.55); TROPONIN I 0.031 ng/mL
--- NOTE | 2017-05-31 09:38 | PROGRESS NOTE E ---
Progress Note NAME: KEVIN MUNIZ : 1945 AGE: 71Y DATE: 05/31/2017 ROOM: [facility] SUBJECTIVE: The patient is currently sitting up in bed. He is eating his breakfast. The patient's heart rate is sustaining around 110 to 130. He has been off the Cardizem drip. We do appreciate Cardiology's input with this. The patient's blood pressure has been in a good range. He denies any nausea, vomiting. He has had some diarrhea overnight, but no shortness of breath, dizziness, chest pain. No pain in general. The patient would only take 1 Tylenol for his pain. The patient does not voice any other concerns at this time. REVIEW OF SYSTEMS: The rest of the review of systems is negative. MEDICATIONS: Medications have been reviewed. OBJECTIVE: GENERAL: The patient is a 71-year old male who is awake, alert, and oriented to person, place, time, and situation. He is verbal, conversational, ambulatory and does not appear to be in any acute distress. VITAL SIGNS: Are as follows: Temperature 98.5, pulse 130, respirations 18, blood pressure 104/70, oxygen saturation is 97% on 4 liters nasal cannula. SKIN: Warm and dry. No rash. Not diaphoretic. HEENT: Pupils equal, round, reactive to light and accommodation. Conjunctivae are pink. No JVP. CARDIOVASCULAR: Heart is regular with no murmur or rub. CHEST: Clear, symmetrical, unlabored. ABDOMEN: Soft, nontender, nondistended. BACK: No CVA tenderness or sacral edema. EXTREMITIES: No clubbing, cyanosis, or edema. PSYCHIATRIC: Appropriate affect. Pleasant mood. DIAGNOSTICS: Chemistry obtained on 05/31/2017: Sodium is 128, potassium 5, chloride is 95, carbon dioxide 27, BUN 15, creatinine is 0.6, glucose 125, calcium is 7.3, magnesium is 1.7. IMPRESSION AND PLAN: 1. HYPOVOLEMIC SHOCK SECONDARY TO SURGICAL BLOOD LOSSES. The patient is status post transfusion, appears optimal at this time. The patient's MAP is in a good range. Blood pressures are good. We will discontinue IV fluids. The patient is taking a regular diet. 2. ATRIAL FIBRILLATION WITH RAPID VENTRICULAR RESPONSE. We do appreciate Cardiology's input with this. 3. SIRS VERSUS SEPSIS. The patient has been tachycardiac, but has not been febrile in over 24 hours. We will continue vancomycin and await cultures and sensitivity. 4. CORONARY ARTERY DISEASE: Appreciate Cardiology's input with this. 5. HYPONATREMIA: Continue to hold his HCTZ. DISPOSITION: The patient is a FULL CODE. Pending patient's symptomatology and diagnostic findings, we will reevaluate in the a.m. The patient can be downgraded to an IMCU bed. Time spent on this followup including assessment, plan, physical examination, patient education, and specialty collaboration is 25 minutes. DICTATING PHYSICIAN: JOE NASH NP [id number] PHY#: [id number] ID: [id number] JOB#: [id number] ACCT: [id number] cc: >
[2017-05-31] MEDS: LISINOPRIL 10 MG TABLET PO SCH (09:45)
[2017-05-31] MEDS: LACTOBACILLUS ACIDOPHILUS 250 MG TAB PO SCH ×2 (10:01→17:23)
[2017-05-31] MEDS: PRENATAL VITAMIN W-O CA NO5/FE FUMARATE/FA CAPSULE PO SCH (10:02)
[2017-05-31] MEDS: VANCOMYCIN HCL 1,500 MG in DEXTROSE 5%-WATER 250 ML IV SCH (17:25)
--- NOTE | 2017-05-31 21:33 | PROGRESS NOTE E ---
Progress Note NAME: KEVIN MUNIZ : 1945 AGE: 71Y DATE: 05/31/2017 ROOM: 336 SUBJECTIVE: The patient denies any chest pain or discomfort. There is no PND or orthopnea. There are no TIA or CVA symptoms. There is no leg edema. The patient denies any dizziness, presyncope or syncope. The patient is in atrial fibrillation, at present his heart rate is 113 beats per minute but sometimes it goes up to 120; hence, we will start the patient on an IV Cardizem drip at 2.5 mg/hr intravenously as an infusion, but the patient is being transferred to the [facility]. OBJECTIVE: GENERAL: On examination, the patient is in no acute distress. VITAL SIGNS: He is afebrile with a temperature of 98.2 degrees Fahrenheit. Pulse is 113 beats per minute, sometimes goes up to 120. The patient is symptomatic with a blood pressure of 118/59, respirations of 16 per minute, O2 saturations are 94% on room air. HEAD: Atraumatic, normocephalic. EYES: Pupils are equal, round, regular, reactive to light and accommodation. Extraocular movements are normal. There is no conjunctival pallor. There is no scleral icterus. EARS, NOSE, AND THROAT: Negative. NECK: Supple. There is no JVD. Carotids are equal. There is no bruit. There is no lymphadenopathy. There is no goiter. Trachea is central. LUNGS: Clear to auscultation and percussion. There is no chest wall tenderness. HEART: S1, S2 is heard. S1 is of variable intensity. There is no S3 gallop. There is no S4 gallop. There is a murmur of mitral regurgitation heard in the apex with radiation to the left axilla and also murmur of tricuspid regurgitation heard. There is no rub. ABDOMEN: Soft, nontender. There is no hepatosplenomegaly. Bowel sounds are well heard. There are no tenderness areas or masses. There is no rebound, guarding, or rigidity. EXTREMITIES: Femorals are slightly diminished. There is no femoral bruit. Leg pulses are diminished. There is no pedal edema. There is no DVT or cellulitis. There is no cyanosis or clubbing. There is no calf tenderness. The dressing in the right hip is dry. CENTRAL NERVOUS SYSTEM: The patient is conscious, awake and alert, oriented x3 with no focal deficits. PSYCHIATRIC: The patient's judgment and insight are intact. His affect is normal. FLUID BALANCE: The patient's 24-hour intake is 3392 mL; output is 1365 mL. LABORATORY DATA: The patient's white count is 8100, hemoglobin has gone down to 10.2, hematocrit is 30.2, and the patient's platelets are 110,000. The patient's sodium is 128.2, potassium 3.5, chloride 95, CO2 is 27, the patient's BUN is 15, creatinine 0.62, GFR is greater than 60, glucose is 125, calcium is 7.3, magnesium 1.7. His CPK-MB is negative. His troponin I is negative at 0.031. His CK is elevated at 225. IMPRESSION: 1. STATUS POST SURGERY AND OPEN REDUCTION OF RIGHT HIP DISLOCATION. 2. BLOOD LOSS DUE TO SURGERY. The patient's hemoglobin is stable at 10.2. 3. CORONARY ARTERY DISEASE, NO HISTORY OF ME, NO ANGINAL SYMPTOMS, NO EVIDENCE OF ME. 4. TWO-VESSEL CORONARY ARTERY BYPASS GRAFT SURGERY. The grafted vessel is not known. 5. 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 6. HISTORY OF MITRAL VALVE REPAIR. The patient with moderate mitral regurgitation. 7. CHRONIC ATRIAL FIBRILLATION. The patient's heart rate is slightly elevated. The patient is resistant to anticoagulation and also with the recent anemia and blood loss from the recent surgery, at present is not the right time to start the patient on anticoagulation. Would start the patient on IV Cardizem and subsequently transition to p.o. Cardizem initially at 30 mg p.o. q.6 h. and subsequently Cardizem 120 mg p.o. daily. May have to decrease the dose of lisinopril to give room for the blood pressure to *------* or tolerate starting the patient on Cardizem CD at 120 mg p.o. daily. 8. MODERATE MITRAL REGURGITATION STATUS POST MITRAL VALVE REPAIR. 9. SEVERE TRICUSPID REGURGITATION. 10. SEVERE PULMONARY HYPERTENSION. The patient may benefit by starting a calcium channel joby and an SAMUEL inhibitor which the patient is already on. Also would recommend starting the patient on iron. Would rather start Cardizem instead of Norvasc in view of the patient's heart rate going up. Note 30 minutes time spent on the patient with more than 50% of the time spent on direct patient care. Also his medications were reviewed. Note this is a highly complex medical decision-making case in view of the patient's marginal blood pressure, severe pulmonary hypertension, moderate mitral regurgitation, history of coronary artery disease, history of anemia and blood loss. Discussed with other caregiving providers on the case. Will follow with you. The patient is being to [facility]. Thanking you. DICTATING PHYSICIAN: WILLOW ADAMS M.D. [id number] PHY#: [id number] ID: [id number] JOB#: [id number] ACCT: [id number] cc: >
[2017-05-31] MEDS: RIVAROXABAN 10 MG TABLET PO SCH (21:37)
[2017-06-01] MEDS: VANCOMYCIN HCL 1,500 MG in DEXTROSE 5%-WATER 250 ML IV SCH ×2 (01:34→10:55)
[2017-06-01] MEDS: ACETAMINOPHEN 325 MG TABLET PO PRN ×2 (02:45→17:40)
[2017-06-01] MEDS: LANSOPRAZOLE 30 MG TAB.RAP.DR PO SCH (05:23)
[2017-06-01 06:25] LABS: HEMATOCRIT 27.8 % (37.9-51.0); HEMOGLOBIN 9.4 g/dL (13.5-17.0); HGB HCT DIFFERENCE 0.4; MEAN CORPUSCULAR HEMOGLOBIN 31.3 pg (27.0-33.4); MEAN CORPUSCULAR HGB CONC 33.6 g/dL (32.0-36.0); MEAN CORPUSCULAR VOLUME 93 fl (80-97); RED BLOOD COUNT 2.99 10^6/uL (4.35-5.55); RED CELL DISTRIBUTION WIDTH 13.7 % (11.5-14.0); WHITE BLOOD COUNT 7.1 10^3/uL (4.0-10.5)
[2017-06-01] MEDS ORDERED: DIGOXIN INJ 0.5 MG/2 ML AMPULE ONE ×2 (08:53→10:43)
[2017-06-01 09:47] LABS: ANION GAP 6 (5-19); BLOOD UREA NITROGEN 15 mg/dL (7-20); CALCIUM 7.3 mg/dL (8.4-10.2); CARBON DIOXIDE 26 mmol/L (22-30); CHLORIDE 97 mmol/L (98-107); CREATININE RESULT 0.65 mg/dL (0.52-1.25); GLUCOSE 107 mg/dL (75-110); MAGNESIUM 1.9 mg/dL (1.6-2.3); POTASSIUM 3.6 mmol/L (3.6-5.0)
[2017-06-01] MEDS: LACTOBACILLUS ACIDOPHILUS 250 MG TAB PO SCH ×2 (10:51→17:40)
[2017-06-01] MEDS: PRENATAL VITAMIN W-O CA NO5/FE FUMARATE/FA CAPSULE PO SCH (10:52)
[2017-06-01] MEDS: FERROUS SULFATE 325 MG TABLET PO SCH ×2 (10:52→17:40)
[2017-06-01] MEDS: LISINOPRIL 10 MG TABLET PO SCH (10:52)
[2017-06-01] MEDS ORDERED: DIGOXIN INJ 0.5 MG/2 ML AMPULE IV ONE (11:00)
[2017-06-01] MEDS ORDERED: FUROSEMIDE INJ/PF 20 MG/2 ML SDV IV ONE (13:00)
[2017-06-01] MEDS ORDERED: POTASSIUM CHLORIDE 10 MEQ TABLET.SA PO ONE (13:00)
--- NOTE | 2017-06-01 13:08 | PROGRESS NOTE E ---
Progress Note NAME: KEVIN MUNIZ : 1945 AGE: 71Y DATE: 06/01/2017 ROOM: 336 SUBJECTIVE: The patient is currently lying in bed. The patient has been loaded with dig but remains in atrial fibrillation. Heart rate is slightly improved. He still remains on a Cardizem drip. The patient denies any nausea, vomiting or diarrhea, no shortness of breath, dizziness, chest pain, no fevers or chills. The patient ambulated around the unit with physical therapy today and the patient does not voice any other concerns at this time. REVIEW OF SYSTEMS: The rest of the review of systems is negative. MEDICATIONS: Have been reviewed. OBJECTIVE: GENERAL: The patient is a 71-year-old male who is awake, alert and oriented to person, place, time and situation. He is verbal conversational and does not appear to be in any acute distress. VITAL SIGNS FOLLOWS: Temperature is 98.5, pulse 120, respirations 18, blood pressure 109/88, oxygen saturation is 93% on 2 L nasal cannula. SKIN: Warm and dry, no rashes, not diaphoretic. HEENT: Pupils equal, round, reactive to light and accommodation. Conjunctivae: [place], no JVP. CARDIOVASCULAR: Heart is regularly irregular without murmur or rub. CHEST: Clear, symmetrical, unlabored. ABDOMEN: Soft, nontender, nondistended. BACK: No CVA tenderness or sacral edema. EXTREMITIES: No clubbing, cyanosis, or edema. PSYCHIATRIC: Appropriate affect, pleasant mood. DIAGNOSTIC DATA: Lab values are as follows: Hematology obtained on 06/01/2017, WBCs are 7.1, hemoglobin is 9.4, hematocrit is 27.8, platelet count is 144,000. Chemistry obtained on 06/01/2017: Sodium is 129, potassium 3.8, chloride is 97, carbon dioxide 26, BUN 15, creatinine is 0.65, glucose 107, calcium is 7.3, magnesium is 1.3. IMPRESSION AND PLAN: 1. HYPOVOLEMIC SHOCK SECONDARY TO SURGICAL LOSSES. The patient overall is much improved post transfusion of 2 units of packed red blood cells and was volume resuscitated as well. Blood pressures are in the good range but hemoglobin is slowly drifting down. Repeat hemoglobin in a.m. and follow. 2. ATRIAL FIBRILLATION WITH RAPID VENTRICULAR RESPONSE. Do appreciate Cardiology's input on this. He has been dig loaded and continues on a Cardizem drip. 3. SIRS VERSUS SEPSIS. OVERALL, THE PATIENT HAS BEEN TACHYCARDIC BUT HAS NOT BEEN FEBRILE. Will discontinue vancomycin given patient's cultures were negative. 4. CORONARY ARTERY DISEASE. Appreciate Cardiology's input with this. 5. HYPONATREMIA. Currently ACT is on hold. DISPOSITION: THE PATIENT IS A FULL CODE. Pending patient's symptomatology and diagnostic findings, we will reevaluate in the a.m. Time spent on this followup including assessment and plan, physical examination and patient education and speciality collaboration is 20 minutes. DICTATING PHYSICIAN: JOE NASH NP [id number] PHY#: [id number] ID: [id number] JOB#: [id number] ACCT: [id number] cc: > MTDD
--- NOTE | 2017-06-01 21:28 | PROGRESS NOTE E ---
Progress Note NAME: KEVIN MUNIZ : 1945 AGE: 71Y DATE: 06/01/2017 ROOM: 336 SUBJECTIVE: Note that the patient denies any chest pain or discomfort. He is in atrial fibrillation with rapid ventricular response. His heart rate was up to 134-140 but he is asymptomatic from that. He does not feel any palpitations. Also, his blood pressure is on the lower side at 100/83. He denies any chest pain or discomfort. There is no PND or orthopnea. There are no wheezing. There is no cough or sputum production. There are no TIA or CVA symptoms. The patient did have more intake than output and seems to be slightly volume overloaded. There is no pedal edema. His right hip pain is controlled with current medication. OBJECTIVE: GENERAL: On examination, the patient is in no acute distress. VITAL SIGNS: He is afebrile with a temperature of 97.3 degrees Fahrenheit, his pulse is 134 beats per minute, blood pressure 100/83, respirations are 18 per minute and O2 saturations are 100% on 3 L nasal cannula. HEAD: Atraumatic, normocephalic. EYES: Pupils are equal, round, regular, reactive to light and accommodation. Extraocular movements are normal. There is no conjunctival pallor. There is no scleral icterus. EARS, NOSE, AND THROAT: Negative. NECK: Supple. There is no JVD. Carotids are equal. There is no bruit. There is no lymphadenopathy. There is no goiter. Trachea is central. LUNGS: Clear to auscultation and percussion. There is no chest wall tenderness. HEART: S1, S2 is heard. S1 is of variable intensity. There is no S3 gallop. There is no S4 gallop. There is a murmur of mitral regurgitation heard in the apex with radiation to the left axilla and also murmur of tricuspid regurgitation heard. There is no rub. ABDOMEN: Soft, nontender. There is no hepatosplenomegaly. Bowel sounds are well heard. There are no tenderness areas or masses. There is no rebound, guarding, or rigidity. EXTREMITIES: Femorals are slightly diminished. There is no femoral bruit. Leg pulses are diminished. There is no pedal edema. There is no DVT or cellulitis. There is no cyanosis or clubbing. There is no calf tenderness. The dressing in the right hip is dry. CENTRAL NERVOUS SYSTEM: The patient is conscious, awake and alert, oriented x3 with no focal deficits. PSYCHIATRIC: The patient's judgment and insight are intact. His affect is normal. FLUID BALANCE: The patient's 24-hour intake is 1634 mL; output is 1495 mL. LABORATORY DATA: The patient's white count is 7100. His hemoglobin has dropped to 9.4, hematocrit is 27.8, and the platelets is 144,000. The patient's sodium is 129, potassium 3.6, chloride 97, CO2 is 26, the patient's BUN is 15, creatinine 0.65, GFR is greater than 60, glucose is 107, calcium is low at 7.3, magnesium is 1.9. His troponin I has further come down yesterday to 0.031; hence, no evidence of TN. IMPRESSION: 1. ATRIAL FIBRILLATION WITH RAPID VENTRICULAR RESPONSE. 2. RELATIVELY LOW BLOOD PRESSURE BUT PATIENT IS ASYMPTOMATIC. 3. BLOOD LOSS DUE TO SURGERY WITH PATIENT'S HEMOGLOBIN DROPPING DOWN TO 9.4; HENCE, THE PATIENT HAS ANEMIA AND MOST LIKELY IRON DEFICIENCY DUE TO BLOOD LOSS. 4. CORONARY ARTERY DISEASE. No history of TN, no history of anginal symptoms, no evidence of TN this admission. 5. TWO-VESSEL CORONARY ARTERY BYPASS GRAFT SURGERY. The grafted vessel is not known. 6. 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 The patient had no chest pain even when the heart rate was 134 with the patient being on atrial fibrillation. 7. HISTORY OF MITRAL VALVE REPAIR. The patient with moderate mitral regurgitation. 8. CHRONIC ATRIAL FIBRILLATION WITH RAPID VENTRICULAR RESPONSE. 9. MODERATE MITRAL REGURGITATION STATUS POST MITRAL VALVE REPAIR. 10. SEVERE TRICUSPID REGURGITATION. 11. SEVERE PULMONARY HYPERTENSION. RECOMMENDATIONS: The patient was given one dose of digoxin. Will increase the patient's Cardizem to 5 mg and later was increased to 10 mg to control the heart rate and the heart rate did come down. Will watch the patient's blood pressure. Will also start the patient on digoxin 0.25 mg p.o. daily. Note that the patient is being started on SAMUEL inhibitor which we will decrease and will start the patient on Cardizem orally once the patient's heart rate is controlled with IV Cardizem. Note that the patient is also on iron supplements for his anemia. Note: 40 minutes time spent on this patient with more than 50% of the time spent on direct patient care, and the patient's medications have been reviewed and adjusted and discussed with the nurses and other caregiving providers on the case. Note: The patient continues to require highly complex medical decision-making. Will follow with you. Note: The medications have been reviewed and adjusted and added. Thanking you. DICTATING PHYSICIAN: WILLOW ADAMS M.D. [id number] PHY#: [id number] ID: [id number] JOB#: [id number] ACCT: [id number] cc: >
[2017-06-01] MEDS: RIVAROXABAN 10 MG TABLET PO SCH (21:41)
[2017-06-02] MEDS: DILTIAZEM HCL/D5W 125 MG/125 ML RTUINJ IV PRN ×2 (00:51→20:04)
[2017-06-02] MEDS: LANSOPRAZOLE 30 MG TAB.RAP.DR PO SCH (05:47)
[2017-06-02] MEDS: LISINOPRIL 10 MG TABLET PO SCH (09:12)
[2017-06-02] MEDS: LACTOBACILLUS ACIDOPHILUS 250 MG TAB PO SCH ×2 (09:13→17:00)
[2017-06-02] MEDS: PRENATAL VITAMIN W-O CA NO5/FE FUMARATE/FA CAPSULE PO SCH (09:13)
[2017-06-02] MEDS: FERROUS SULFATE 325 MG TABLET PO SCH ×2 (09:13→17:00)
[2017-06-02] MEDS: DIGOXIN 0.25 MG TABLET PO SCH (09:13)
--- NOTE | 2017-06-02 15:25 | PDOC PROGRESS REPORT ---
Subjective Subjective:: Patient seen on rounds this afternoon. He states he has been doing well. Has been up and around with physical therapy without discomfort. He did have a decrease in blood pressure yesterday after lisinopril but otherwise he feels as though he is doing well. Continues to require Cardizem drip for atrial fibrillation with RVR Physical Exam Vital Signs: Temp Pulse Resp BP Pulse Ox 98.7 F 73 18 128/49 H 100 06/02/17 11:53 06/02/17 15:00 06/02/17 11:53 06/02/17 15:00 06/02/17 11:53 Intake & Output 06/01/17 06/02/17 06/03/17 06:59 06:59 06:59 Intake Total 1634 2938 464 Output Total 1495 1375 Balance 139 1563 464 Weight 90 kg Musculoskeletal exam: PRESENT: other - Right hip: Mild blood tinge along the central aspect of the surgical dressing. No active drainage. No erythema. No pain with hip range of motion. No evidence of limb length inequality. Intact plantar flexion/dorsiflexion. No calf tenderness negative [place]. Results Laboratory Results: 06/01/17 06:05 06/01/17 06:05 05/29/17 11:42 Hip - Right Gram Stain - Final 05/29/17 11:42 Hip - Right Wound Culture - Final NO AEROBIC OR ANAEROBIC ORGANISMS RECOVERED 05/30/17 05/31/17 05/31/17 08:30 08:48 08:48 Creatine Kinase 225 H CK-MB (CK-2) 1.01 Troponin I 0.046 0.031 Impressions: Hip/Pelvis X-Ray 05/27/17 00:00 IMPRESSION: There is been bilateral hip replacements. The right prosthesis is dislocated as described. Pelvis X-Ray 05/29/17 13:23 IMPRESSION: SATISFACTORY POSTOPERATIVE RIGHT HIP. Chest X-Ray 05/30/17 07:45 IMPRESSION: NO ACUTE RADIOGRAPHIC FINDING IN THE CHEST. Assessment & Plan - Diagnosis (1) Recurrent dislocation, right hip Is this a current diagnosis for this admission?: YesPlan: Patient will continue physical therapy with hip precautions. From an orthopedic standpoint he is doing well and stable for discharge home once his medical issues have been resolved.
--- NOTE | 2017-06-02 16:38 | EKG REPORT ---
SEVERITY:- ABNORMAL ECG - ATRIAL FIBRILLATION INCOMPLETE RBBB AND LAFB : Confirmed by: Carlos Patrick 02-Jun-2017 16:37:24
--- NOTE | 2017-06-02 19:19 | PROGRESS NOTE E ---
Progress Note NAME: KEVIN MUNIZ : 1945 AGE: 71Y DATE: 06/02/2017 ROOM: 336 SUBJECTIVE: The patient denies any chest pain or discomfort. He continues to be in atrial fibrillation with somewhat of a rapid ventricular response. At present, his heart rate is 118 beats per minute but sometimes it goes up to 135. His blood pressure is stable. He is not aware of any palpitations. There is no dizziness. There are no TIA or CVA symptoms. There is no bleeding on the Xarelto given for DVT prophylaxis. He has no chest pain or discomfort. There is no PND, orthopnea, or leg edema. OBJECTIVE: GENERAL: On examination the patient is in no acute distress. He is well built and well nourished. VITAL SIGNS: He is afebrile with a temperature of 98.2 degrees Fahrenheit. Pulse is 118 beats per minute. Blood pressure is 113/50. Respirations are 18 per minute. O2 saturations are 97% on 3 liters nasal cannula. HEAD: Atraumatic/normocephalic. EYES: Pupils are equal, round, regular, reactive to light and accommodation. Extraocular movements are normal. There is no conjunctival pallor. There is no scleral icterus. EARS, NOSE, AND THROAT: Negative. NECK: Supple. There is no JVD. Carotids are equal. There is no bruit. There is no goiter. Trachea is central. There is no lymphadenopathy. LUNGS: Clear to auscultation and percussion. There is no chest wall tenderness. There is no axillary muscles of respirations used. HEART: S1, S2 is heard. The S1 is of variable intensity. There is no S3 gallop. There is no S4 gallop. There is a murmur of mitral regurgitation in the apex with radiation to the left axilla and also murmur of tricuspid regurgitation heard. There is no rub. ABDOMEN: Soft, nontender. There is no hepatosplenomegaly. Bowel sounds are well heard. There are no tender areas or masses. EXTREMITIES: Femorals are slightly diminished. There is no femoral bruit. Leg pulses are diminished. There is no pedal edema. There is no DVT or cellulitis. There is no cyanosis or clubbing. Her capillary refill is normal. There is no calf tenderness. The dressing on the right hip is dry. CENTRAL NERVOUS SYSTEM: The patient is conscious, awake, alert, oriented x3 with no focal deficits. PSYCHIATRIC: The patient's judgement and insight are intact. His affect is normal. FLUID BALANCE: The patient's 24-hour intake is 2930 mL, output is 1375. DIAGNOSTIC DATA: The patient's EKG shows atrial fibrillation, right bundle branch block pattern incomplete, and left anterior fascicular block. At the time of EKG, the heart rate seems to be controlled with a rate of 83 beats per minute. ASSESSMENT: 1. ATRIAL FIBRILLATION WITH RAPID VENTRICULAR RESPONSE. Will increase the patient's Cardizem drip. Note that the patient is already on p.o. Digoxin. Once her heart rate is controlled, will transition the patient to Cardizem CD by mouth. Note that the patient's lisinopril has been decreased, making room for the patient to be on Cardizem. 2. *------* DUE TO SURGERY WITH THE PATIENT'S HEMOGLOBIN DROPPING DOWN TO 9.4. Hence the patient has been in here. Most likely iron-deficiency anemia due to blood loss. The patient is being started on ferrous sulfate. 3. CORONARY ARTERY DISEASE. No history of [place]. No anginal symptoms. No evidence of [place] at this presentation. 4. TWO-VESSEL CORONARY ARTERY BYPASS GRAFT SURGERY. Grafts and vessels not known. 5. ATHEROSCLEROTIC HEART DISEASE WITH NO ANGINAL SYMPTOMS. Will start the patient on Cardizem and continue the patient on aspirin. 6. HISTORY OF MITRAL VALVE REPAIR. The patient has moderate mitral regurgitation. 7. CHRONIC ATRIAL FIBRILLATION WITH RAPID VENTRICULAR RESPONSE. I will increase the patient's Cardizem drip. Continue the patient's Digoxin. I will later transition to p.o. Cardizem, also will increase the patient's Xarelto to 20 mg p.o. daily for stroke prophylaxis. 8. MODERATE MITRAL REGURGITATION, STATUS POST MITRAL VALVE REPAIR. 9. SEVERE TRICUSPID REGURGITATION. 10. SEVERE PULMONARY HYPERTENSION. RECOMMENDATIONS: Note, 35 minutes spent on the patient with more than 50% of the time spent on direct patient care. Note, review of systems showed no changes and his medications have been reviewed and adjusted. The drips have been adjusted. As mentioned earlier, later we will increase the patient's Xarelto to stroke prophylaxis since the patient is in atrial fibrillation. Note, more than 50% of the time spent on direct care patient and also discussed with the other care giving providers and formulated a management care plan for this patient in coordination with the others. Of note, the patient continues to require highly complex medical decision making. Will follow with you. Discussed with the patient and discussed with the patient's . DICTATING PHYSICIAN: WILLOW ADAMS M.D. [id number] PHY#: [id number] ID: [id number] JOB#: [id number] ACCT: [id number] cc:WILLOW ADAMS M.D. >
[2017-06-02] MEDS: ACETAMINOPHEN 325 MG TABLET PO PRN (20:02)
[2017-06-02] MEDS: RIVAROXABAN 10 MG TABLET PO SCH (21:42)
[2017-06-03] MEDS: DILTIAZEM HCL/D5W 125 MG/125 ML RTUINJ IV PRN (04:03)
[2017-06-03] MEDS: LANSOPRAZOLE 30 MG TAB.RAP.DR PO SCH (06:07)
--- NOTE | 2017-06-03 06:43 | PDOC DISCHARGE SUMMARY ---
General - Admit/Disc Date/PCP Admission Date/Primary Care Provider: 05/27/17 18:23 Discharge Date: 06/03/17 - Discharge Diagnosis (1) Recurrent dislocation, right hip Is this a current diagnosis for this admission?: Yes (2) Pulmonary hypertension Is this a current diagnosis for this admission?: Yes (3) Coronary artery disease Is this a current diagnosis for this admission?: Yes (4) Atrial fibrillation Is this a current diagnosis for this admission?: Yes - Additional Information Resuscitation Status: Full Code Discharge Diet: As Tolerated, Regular Discharge Activity: Balance Activity w/Rest, No Driving, No tub bath, Walk Frequently Home Medications: Gluc 2Kcl/Chondr/Inés Hy/Hy AC [Glucosamine & Chondroitin Cap] 1 cap PO DAILY Lisinopril/Hydrochlorothiazide [Lisinopril-Hctz 20-12.5 mg Tab] 1 tab PO DAILY 05/27/17 Saw Noonan Fruit [Saw Noonan] 450 mg PO DAILY 05/27/17 Digoxin [Lanoxin 0.25 mg Tablet] 0.25 mg PO DAILY #0 tablet 06/03/17 Ferrous Sulfate [Feosol 325 mg Tablet] 325 mg PO BIDPCBS #0 tablet 06/03/17 Oxycodone HCl [Oxy-Ir 5 mg Tablet] 5 mg PO Q6HP PRN #0 tablet 06/03/17 Rivaroxaban [Xarelto 10 mg Tablet] 10 mg PO QHS #0 tablet 06/03/17 History of Present Illness History of Present Illness: Patient is a 2-year-old white male status post bilateral hip arthroplasty approximately 3 years ago. The left is been asymptomatic. He has had 2 prior dislocations on the right side. 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 Is brought to the emergency room attempt at reduction under conscious sedation was unsuccessful. He was then taken to the operating room by myself and under general anesthetic is still unable to reduce the hip dislocation. Hospital Course Hospital Course: Was admitted to the hospital. He was taken to the operating 2 days later when the appropriate instrumentation was available. He underwent a revision right hip arthroplasty. At this with some episodes of cardiopulmonary issues. Postoperatively he was transferred to the intensive care unit where he stayed for 2 days. He was subsequently transferred to the floor and made excellent progress with physical therapy. Physical Exam Vital Signs: Temp Pulse Resp BP Pulse Ox 36.4 C 99 18 116/70 94 06/03/17 00:05 06/03/17 02:00 06/02/17 15:30 06/03/17 02:01 06/03/17 00:09 Intake & Output 06/01/17 06/02/17 06/03/17 06:59 06:59 06:59 Intake Total 1634 2938 1411 Output Total 1495 1375 1675 Balance 139 1563 -264 Weight 90 kg 90.2 kg General appearance: PRESENT: no acute distress, thin Head exam: PRESENT: normocephalic Eye exam: PRESENT: EOMI Respiratory exam: PRESENT: unlabored Cardiovascular exam: PRESENT: RRR Pulses: PRESENT: +1 pedal pulses bilateral Vascular exam: PRESENT: normal capillary refill GI/Abdominal exam: PRESENT: soft Rectal exam: PRESENT: deferred Extremities exam: PRESENT: other - Hip dressing clean dry and intact. Leg lengths are equal. Distal neurovascular examination is intact. Neurological exam: PRESENT: alert, awake, oriented to person, oriented to place , oriented to time, oriented to situation, CN II-XII grossly intact. ABSENT: motor sensory deficit Psychiatric exam: PRESENT: appropriate affect, normal mood. ABSENT: homicidal ideation, suicidal ideation Skin exam: PRESENT: dry, intact, warm. ABSENT: cyanosis, rash Results Laboratory Results: 06/01/17 06:05 06/01/17 06:05 05/29/17 11:42 Hip - Right Gram Stain - Final 05/29/17 11:42 Hip - Right Wound Culture - Final NO AEROBIC OR ANAEROBIC ORGANISMS RECOVERED 05/30/17 05/31/17 05/31/17 08:30 08:48 08:48 Creatine Kinase 225 H CK-MB (CK-2) 1.01 Troponin I 0.046 0.031 Impressions: Hip/Pelvis X-Ray 05/27/17 00:00 IMPRESSION: There is been bilateral hip replacements. The right prosthesis is dislocated as described. Pelvis X-Ray 05/29/17 13:23 IMPRESSION: SATISFACTORY POSTOPERATIVE RIGHT HIP. Chest X-Ray 05/30/17 07:45 IMPRESSION: NO ACUTE RADIOGRAPHIC FINDING IN THE CHEST. Status: Imported from PACS Plan Discharge Plan: Patient to be discharged home with home health nursing, home health physical therapy, wheeled walker, bedside commode. Follow-up will be with Dr. Solano in the [facility] for surgery in 2 weeks for staple removal.
--- NOTE | 2017-06-03 08:03 | PROGRESS NOTE E ---
Progress Note NAME: KEVIN MUNIZ : 1945 AGE: 71Y DATE: 06/02/2017 ROOM: 336 SUBJECTIVE: The patient is lying in bed. He had been seen today on rounds by Cardiology. Patient is still tachycardic; however, he has been afebrile. His blood pressures have been in a good range. The patient's white count had normalized. The patient does not voice any other concerns at this time. REVIEW OF SYSTEMS: Rest of review of systems negative. MEDICATIONS: Medications have been reviewed. OBJECTIVE: GENERAL: The patient is a 71-year-old male who is awake, alert, and oriented to person, place, time, and situation. He is verbal, conversational, does not appear to be in any acute distress. VITAL SIGNS: Temperature is 97.6, pulse 111, blood pressure is 105/64, oxygen saturation is 98% on room air, respiratory rate 16. SKIN: Warm and dry. No rash. She is not diaphoretic. HEENT: Pupils equal, round, and reactive to light and accommodation. Conjunctiva pink. No JVP. CARDIOVASCULAR SYSTEM: Heart is regular. There is no murmur or rub. CHEST: Clear, symmetrical, unlabored. ABDOMEN: Soft, nontender, nondistended. BACK: No CVA tenderness or sacral edema. EXTREMITIES: No clubbing, cyanosis, edema. PSYCHIATRIC: Appropriate affect, pleasant mood. DIAGNOSTICS: Lab values are as follows: Hematology obtained on 06/01/2017: WBCs are 10.1, hemoglobin is 9.4, hematocrit is 27.8, platelet count is 144,000. Chemistry obtained on 06/01/2017: Sodium is 129, potassium 3.6, chloride is 97, carbon dioxide 26, BUN 15, creatinine is 0.65, glucose 107, calcium is 7.3, magnesium is 1.9. IMPRESSION AND PLAN: 1. HYPOVOLEMIC SHOCK SECONDARY TO SURGICAL LOSSES. Overall, the patient is much improved status post transfusion of 2 units of packed red blood cells and was well volume resuscitated. Blood pressures are in a good range. Hemoglobin is relatively stable. Will follow. 2. ATRIAL FIBRILLATION WITH RAPID VENTRICULAR RESPONSE. Do appreciate Cardiology's input on this. He has been dig loaded. 3. CORONARY ARTERY DISEASE. Appreciate Cardiology's input on this. 4. SIRS VERSUS SEPSIS. Overall, the patient has been tachycardic, but has not been febrile. White count has normalized. The patient has been off antibiotics for greater than 24 hours. 5. HYPONATREMIA. Would recommend discontinuing hydrochlorothiazide and continue to follow. DISPOSITION: The patient is a FULL CODE. Pending patient's symptomatology and diagnostic findings. Will sign off on the patient at this time. As always, I would like to thank the orthopedist for allowing the surgicalist to participate in the care of this nice patient. If there should be a change in the patient's medical condition, feel free to call us back. Time spent on this followup including assessment, plan, physical examination, patient education is 20 minutes. DICTATING PHYSICIAN: JOE NASH NP [id number] Y#: [id number] ID: [id number] JOB#: [id number] ACCT: [id number] cc: >
[2017-06-03] MEDS: PRENATAL VITAMIN W-O CA NO5/FE FUMARATE/FA CAPSULE PO SCH (09:14)
[2017-06-03] MEDS: LISINOPRIL 10 MG TABLET PO SCH (09:15)
[2017-06-03] MEDS: LACTOBACILLUS ACIDOPHILUS 250 MG TAB PO SCH ×2 (09:15→17:20)
[2017-06-03] MEDS: FERROUS SULFATE 325 MG TABLET PO SCH ×2 (09:15→17:20)
[2017-06-03] MEDS: DIGOXIN 0.25 MG TABLET PO SCH (09:16)
[2017-06-03] MEDS ORDERED: DIGOXIN INJ 0.5 MG/2 ML AMPULE ONE ×2 (10:45→11:20)
[2017-06-03] MEDS: DILTIAZEM HCL 60 MG TABLET PO SCH ×2 (14:09→22:02)
--- NOTE | 2017-06-03 14:34 | PROGRESS NOTE E ---
Progress Note NAME: KEVIN MUNIZ : 1945 AGE: 71Y DATE: 06/03/2017 ROOM: 336 SUBJECTIVE: The patient continues to be in atrial fibrillation with a ventricular response in the 130s. Earlier I had asked the nurse to give the patient digoxin IV and the patient refused to take it. I had a lengthy discussion with the patient and the patient's telling them that the patient needs to allow me to treat him so that I can help him. I have explained to them that the patient has mitral valve disease with mitral regurgitation and the patient's atrial fibrillation is valvular atrial fibrillation and, hence, the Xarelto will not work. He needs to be on Coumadin. I also told them that in view of the patient's pulmonary hypertension and moderate mitral regurgitation, it has been difficult to control his heart rate. I have told him that we cannot increase his medications abruptly but we have to do it smoothly so that we can control his heart rate. Also, the risks and benefits of anticoagulation have been discussed with him. Finally, the patient allowed me to treat him. In spite of all this, the patient is asymptomatic without any chest pain or discomfort. He denies any palpitations. There is no PND, orthopnea or leg edema. There is no TIA or CVA symptoms. PHYSICAL EXAMINATION: GENERAL: On examination, the patient is well built and well nourished, in no acute distress. VITAL SIGNS: He is afebrile with a temperature of 98.3 degrees Fahrenheit. His pulse is 128-134 beats per minute, irregularly irregular. Blood pressure is 115/72. The patient is on 15 mg per hour of Cardizem. His respirations are 19 per minute. O2 sats are 98% on room air. HEENT: Head is atraumatic, normocephalic. Eyes - Pupils are equal, round, regular, reactive to light and accommodation. Extraocular movements are normal. There is no conjunctival pallor. There is no scleral icterus. ENT is negative. NECK: Supple. There is no JVD. Carotids are equal. There is no bruit. There is no goiter. Trachea is central. There is no lymphadenopathy. LUNGS: Clear to auscultation and percussion. There is no chest wall tenderness. There are no accessory muscles of respiration in use. HEART: S1 and S2 is heard. S1 is of variable intensity. There is no S3 gallop. There is no S4 gallop. There is a murmur of mitral regurgitation in the apex with radiation to the left axilla and also a murmur of tricuspid regurgitation heard. There is no rub. ABDOMEN: Soft, nontender. There is no hepatosplenomegaly. Bowel sounds are well heard. There are no tender areas or masses. EXTREMITIES: Femorals are slightly diminished. There are no femoral bruits. Leg pulses are slightly diminished. There is no pedal edema. There is no cyanosis or clubbing. There is no DVT or cellulitis. There is no calf tenderness. Capillary refill is normal. CENTRAL NERVOUS SYSTEM: The patient is conscious, awake, alert, oriented x3 with no focal deficits. PSYCHIATRIC: The patient's judgement and insight are intact. His affect is normal. DIAGNOSTICS: The patient's 24-hour intake is 1591 mL, output is 1675 mL. Note that the patient has been discharged by Dr. Solano but the patient is not able to go home since he is on a Cardizem drip. IMPRESSION: 1. ATRIAL FIBRILLATION WITH RAPID VENTRICULAR RESPONSE. Will give the patient digoxin 0.125 mg IV push x1 now and recheck the patient's digoxin level in the a.m. to see if he needs more. Will wean the patient off Cardizem drip and start the patient on Cardizem 60 mg p.o. every 8 hours. Also, after tonight's dose we will stop the Xarelto and place the patient on Lovenox 40 mg subcutaneously for DVT/PE prophylaxis and start the patient on Coumadin. 2. ANEMIA DUE TO SURGERY WITH PATIENT'S HEMOGLOBIN DROPPING DOWN TO 9.4. The patient is on ferrous sulfate. 3. CORONARY ARTERY DISEASE. No history of ID, no anginal symptoms, no evidence of ID this admission. 4. TWO-VESSEL CORONARY ARTERY BYPASS GRAFT SURGERY, GRAFTS AND VESSELS NOT KNOWN. 5. ATHEROSCLEROTIC HEART DISEASE WITH NO ANGINAL SYMPTOMS. Note that the patient has been started on Cardizem. 6. HISTORY OF MITRAL VALVE REPAIR. The patient has moderate mitral regurgitation. 7. CHRONIC ATRIAL FIBRILLATION WITH FAST VENTRICULAR RESPONSE. Note that the patient is being transitioned to p.o. Cardizem. Will slowly wean off the Cardizem drip and also give an extra dose of digoxin. Also, we will start the patient on Coumadin from tomorrow as mentioned earlier since the patient has valvular atrial fibrillation. 8. MODERATE MITRAL REGURGITATION, STATUS POST MITRAL VALVE REPAIR. 9. SEVERE TRICUSPID REGURGITATION. 10. SEVERE PULMONARY HYPERTENSION. NOTE: Forty minutes were spent on this patient, more than 50% of the time spent in direct patient care and also discussions with the patient regarding his noncompliance with the medications prescribed by me. The patient states that he will try now and he has accepted. Hence, we will continue the patient on current therapy as mentioned earlier. We will stop the patient's Xarelto after tonight's dose, start the patient on Lovenox 40 mg subcutaneously daily, and also will start the patient on Coumadin from tomorrow. Hopefully the patient will be discharged in 48-72 hours. Discussed with the patient and the patient's , discussed with other caregiving providers on the case and coordination of care done. Note that the patient's orthopedists signed off the case now and also the hospitalists have signed off the case. I will follow the patient by myself. Note, more than 50% of the time was spent in direct patient care and also substantial time was spent on making the patient understand that he requires treatment for rate control of his atrial fibrillation since this might decelerate into ventricular fibrillation and/or in view of the rapid heart rate may precipitate an ID. *------* complications, including sudden and congestive heart failure and development of cardiomyopathy. All of these were discussed with the patient and patient's . I will follow with you. DICTATING PHYSICIAN: WILLOW ADAMS M.D. [id number] PRANAY#: [id number] ID: [id number] JOB#: [id number] ACCT: [id number] cc: >
[2017-06-03] MEDS: RIVAROXABAN 10 MG TABLET PO SCH (22:03)
[2017-06-03 22:59] LABS: ABSOLUTE EOSINOPHILS # (AUTO) 0.2 10^3/uL (0.0-0.6); ABSOLUTE LYMPHOCYTES (AUTO) 0.9 10^3/uL (0.5-4.7); ABSOLUTE MONOCYTES (AUTO) 0.6 10^3/uL (0.1-1.4); ABSOLUTE NEUT (AUTO) 4.9 10^3/uL (1.7-8.2); BASOPHILS % (AUTO) 0.4 % (0-2); EOSINOPHILS % (AUTO) 3.1 % (0-6); HEMATOCRIT 25.9 % (37.9-51.0); HEMOGLOBIN 8.7 g/dL (13.5-17.0); HGB HCT DIFFERENCE 0.2; LYMPHOCYTES % (AUTO) 13.4 % (13-45); MEAN CORPUSCULAR HEMOGLOBIN 31.3 pg (27.0-33.4); MEAN CORPUSCULAR HGB CONC 33.4 g/dL (32.0-36.0); MEAN CORPUSCULAR VOLUME 94 fl (80-97); MONOCYTES % (AUTO) 8.9 % (3-13); RED BLOOD COUNT 2.76 10^6/uL (4.35-5.55); RED CELL DISTRIBUTION WIDTH 13.7 % (11.5-14.0); SEGMENTED NEUTROPHILS % (AUTO) 74.2 % (42-78); WHITE BLOOD COUNT 6.7 10^3/uL (4.0-10.5)
[2017-06-03 23:18] LABS: ANION GAP 7 (5-19); BLOOD UREA NITROGEN 17 mg/dL (7-20); CALCIUM 7.6 mg/dL (8.4-10.2); CARBON DIOXIDE 26 mmol/L (22-30); CHLORIDE 99 mmol/L (98-107); CREATININE RESULT 0.69 mg/dL (0.52-1.25); GLUCOSE 122 mg/dL (75-110); POTASSIUM 3.8 mmol/L (3.6-5.0); SODIUM 131.5 mmol/L (137-145)
[2017-06-04] MEDS ORDERED: POTASSIUM CHLORIDE 20 MEQ/15 ML UDCUP PO ONE (00:15)
[2017-06-04] MEDS: DILTIAZEM HCL 60 MG TABLET PO SCH (06:04)
[2017-06-04] MEDS: LANSOPRAZOLE 30 MG TAB.RAP.DR PO SCH (06:05)
--- NOTE | 2017-06-04 08:20 | PDOC PROGRESS REPORT ---
Subjective Subjective:: Patient seen on rounds. He states he has been doing well. Has been up and around with physical therapy without discomfort. Pain controlled. Physical Exam Vital Signs: Temp Pulse Resp BP Pulse Ox 97.7 F 84 17 121/63 93 06/04/17 04:12 06/04/17 07:00 06/04/17 04:12 06/04/17 04:12 06/04/17 04:12 Intake & Output 06/03/17 06/04/17 06/05/17 06:59 06:59 06:59 Intake Total 1591 1723 Output Total 1675 1380 Balance -84 343 Weight 90.2 kg 90.3 kg Musculoskeletal exam: PRESENT: other - Right lower extremity: Blood-tinged drainage along the lateral aspect of the incision. Intact plantar flexion/ dorsiflexion. No calf tenderness. Results Laboratory Results: 06/03/17 22:40 06/03/17 22:40 06/03/17 06/03/17 06/03/17 22:40 22:40 22:40 WBC 6.7 RBC 2.76 L Hgb 8.7 L Hct 25.9 L MCV 94 MCH 31.3 MCHC 33.4 RDW 13.7 Plt Count 217 Seg Neutrophils % 74.2 Lymphocytes % 13.4 Monocytes % 8.9 Eosinophils % 3.1 Basophils % 0.4 Absolute Neutrophils 4.9 Absolute Lymphocytes 0.9 Absolute Monocytes 0.6 Absolute Eosinophils 0.2 Absolute Basophils 0.0 Sodium 131.5 L Potassium 3.8 Chloride 99 Carbon Dioxide 26 Anion Gap 7 BUN 17 Creatinine 0.69 Est GFR ( Amer) > 60 Est GFR (Non-Af Amer) > 60 Glucose 122 H Calcium 7.6 L Magnesium 2.0 TSH 1.49 05/30/17 05/31/17 05/31/17 08:30 08:48 08:48 Creatine Kinase 225 H CK-MB (CK-2) 1.01 Troponin I 0.046 0.031 06/03/17 22:40 Creatine Kinase CK-MB (CK-2) Troponin I 0.074 Impressions: Hip/Pelvis X-Ray 05/27/17 00:00 IMPRESSION: There is been bilateral hip replacements. The right prosthesis is dislocated as described. Pelvis X-Ray 05/29/17 13:23 IMPRESSION: SATISFACTORY POSTOPERATIVE RIGHT HIP. Chest X-Ray 05/30/17 07:45 IMPRESSION: NO ACUTE RADIOGRAPHIC FINDING IN THE CHEST. Assessment & Plan - Diagnosis (1) Recurrent dislocation, right hip Is this a current diagnosis for this admission?: YesPlan: Patient will continue physical therapy with hip precautions. From an orthopedic standpoint he is doing well and stable for discharge home once his medical issues have been resolved.
[2017-06-04] MEDS: LISINOPRIL 10 MG TABLET PO SCH (10:19)
[2017-06-04] MEDS: LACTOBACILLUS ACIDOPHILUS 250 MG TAB PO SCH ×2 (10:19→17:21)
[2017-06-04] MEDS: FERROUS SULFATE 325 MG TABLET PO SCH ×2 (10:19→17:21)
[2017-06-04] MEDS: DIGOXIN 0.25 MG TABLET PO SCH (10:20)
[2017-06-04] MEDS: PRENATAL VITAMIN W-O CA NO5/FE FUMARATE/FA CAPSULE PO SCH (10:20)
[2017-06-04] MEDS: DILTIAZEM HCL 120 MG CAP.SR.24H PO SCH ×2 (10:22→21:54)
[2017-06-04 11:56] LABS: PROTHROMBIN TIME 16.2 SEC (11.4-15.4)
[2017-06-04 11:59] LABS: HEMATOCRIT 29.6 % (37.9-51.0); HEMOGLOBIN 9.8 g/dL (13.5-17.0); HGB HCT DIFFERENCE -0.2; MEAN CORPUSCULAR HEMOGLOBIN 31.2 pg (27.0-33.4); MEAN CORPUSCULAR VOLUME 95 fl (80-97); RED BLOOD COUNT 3.13 10^6/uL (4.35-5.55); RED CELL DISTRIBUTION WIDTH 13.7 % (11.5-14.0); WHITE BLOOD COUNT 7.2 10^3/uL (4.0-10.5)
--- NOTE | 2017-06-04 20:03 | PROGRESS NOTE E ---
Progress Note NAME: KEVIN MUNIZ : 1945 AGE: 71Y DATE: 06/04/2017 ROOM: 336 SUBJECTIVE: The patient continues to be in atrial fibrillation, but his heart rate is much better. His Cardizem drip has been discontinued. He is on p.o. Cardizem at 60 mg p.o. q.8 h. He has consented to be on Coumadin, and the risks of bleeding have been discussed with the patient. Also I have discussed that since the patient has mitral valve disease and this is a valvular atrial fibrillation, Coumadin is the only anticoagulation recommended since the newer anticoagulation medications do not work in valvular atrial fibrillation. The patient denies any chest pain or discomfort. There is no PND or orthopnea. There is no shortness of breath. There is no palpitation. There is no dizziness. There is no near syncope or syncope. There are no TIA or CVA symptoms. There is no bleeding on Xarelto. OBJECTIVE: GENERAL: On examination the patient is well built and well nourished, in no acute distress. VITAL SIGNS: He is afebrile with a temperature of 98.3 degrees Fahrenheit. His pulse is 91 beats per minute. Blood pressure 118/69. Respirations are 18 per minute. O2 saturations are 95% on room air. HEAD: Atraumatic/normocephalic. EYES: Pupils are equal, round, regular, reactive to light and accommodation. Extraocular movements are normal. There is no conjunctival pallor. There is no scleral icterus. EARS, NOSE, AND THROAT: Negative. NECK: Supple. There is no JVD. Carotids are equal. There is no bruit. There is no goiter. Trachea is central. There is no lymphadenopathy. LUNGS: Clear to auscultation and percussion. There is no chest wall tenderness. There are no accessory muscles of respiration used. HEART: S1, S2 is heard. S1 is of variable intensity. There is no S3 gallop. There is no S4 gallop. There is a murmur of mitral regurgitation present with the murmur being heard in the apex with radiation to the left axilla. There is also murmur of tricuspid regurgitation present. There is no rub. ABDOMEN: Soft, nontender. There is no hepatosplenomegaly. Bowel sounds are well heard. There are no tender areas or masses. EXTREMITIES: Femorals are slightly diminished. There is no femoral bruit. Leg pulses are slightly diminished. There is no pedal edema. There is no cyanosis or clubbing. There is no DVT or cellulitis. There is no calf tenderness. Capillary refill is normal. CENTRAL NERVOUS SYSTEM: The patient is conscious, awake, alert, oriented x3 with no focal deficit. PSYCHIATRIC: The patient's judgement and insight are intact. Her affect is normal. FLUID BALANCE: The patient's 24-hour intake is 1723 mL, output is 1380 mL. DIAGNOSTIC DATA: The patient's white count is 9,200, hemoglobin is 9.8, hematocrit is 29.6, and his platelet count is 282,000. The patient's sodium was 131.5 yesterday, and his potassium was 3.8 yesterday and the chloride 99, CO2 was 26. The patient's BUN is 17, creatinine 0.69, GFR is greater than 60, glucose is 122. His calcium is 7.6. Magnesium was 2.0 yesterday. Yesterday night his troponin-I was indeterminate/negative at 0.074. His TSH was 1.49. IMPRESSION: 1. ATRIAL FIBRILLATION WITH NOW CONTROLLED VENTRICULAR RESPONSE. Would discontinue the patient's Cardizem [address] q[address] the patient on long-acting Cardizem at 120 mg p.o. q.12 h. Continue the patient's Digoxin but note that the patient's Digoxin level was 1.01. Would also continue the patient's Xarelto at least for about 4 days to bridge and place the patient on Coumadin at 5 mg p.o. at bedtime and repeat ProTime in about 5 days. The patient most likely will be discharged home tomorrow. 2. ANEMIA DUE TO SURGERY DUE TO BLOOD LOSS. The patient is on iron tablets and tolerating it well. 3. CORONARY ARTERY DISEASE. No history of TX. No anginal symptoms. No evidence of TX this admission. 4. TWO-VESSEL CORONARY ARTERY BYPASS GRAFT SURGERY. Grafts and the vessel lesions not known. 5. ATHEROSCLEROTIC HEART DISEASE WITH NO ANGINAL SYMPTOMS. 6. HISTORY OF MITRAL VALVE REPAIR. The patient has moderate mitral regurgitation with some chronic atrial fibrillation valvular with now a controlled ventricular response. Plan as mentioned earlier. 7. MODERATE MITRAL REGURGITATION, STATUS POST MITRAL VALVE REPAIR. 8. SEVERE TRICUSPID REGURGITATION. 9. SEVERE PULMONARY HYPERTENSION. RECOMMENDATIONS: As mentioned earlier, will transition the patient to p.o. Cardizem CD 120 mg p.o. q.12 h., continue Digoxin. Will bridge the patient with Xarelto for at least 4 days and continue the patient on 5 mg of Coumadin nightly and recheck the patient's ProTime in 5 days to see if the patient needs an increase in dosage. All of this was discussed with the patient. Note, 35 minutes spent on the patient with more than 50% of the time spent on direct patient care and also discussions as to why Coumadin is the drug of choice in this patient since he has valvular atrial fibrillation. His medications have been reviewed and adjusted. Note, highly complex medical decision making was needed in this case. Will re-assess the patient in the a.m. to see if the patient can go home. Note, in the meantime the patient has been ambulating with Physical Therapy without any problems, and his pain of the right hip is well controlled. DICTATING PHYSICIAN: WILLOW ADAMS M.D. [id number] PHY#: [id number] ID: [id number] JOB#: [id number] ACCT: [id number] cc:WILLOW ADAMS M.D. >
[2017-06-04] MEDS: RIVAROXABAN 10 MG TABLET PO SCH (21:52)
[2017-06-04] MEDS ORDERED: WARFARIN SODIUM 5 MG TABLET PO SCH (22:00)
[2017-06-05] MEDS: ACETAMINOPHEN 325 MG TABLET PO PRN ×2 (01:54→11:35)
[2017-06-05] MEDS: LANSOPRAZOLE 30 MG TAB.RAP.DR PO SCH (05:21)
[2017-06-05 06:29] LABS: PROTHROMBIN TIME 19.5 SEC (11.4-15.4)
[2017-06-05] MEDS: FERROUS SULFATE 325 MG TABLET PO SCH (08:42)
[2017-06-05 08:51] LABS: APPEARANCE,URINE CLEAR; BILIRUBIN,URINE NEGATIVE (NEGATIVE); GLUCOSE, URINE NEGATIVE (NEGATIVE); KETONES,URINE NEGATIVE (NEGATIVE); LEUKOCYTE ESTERASE,URINE NEGATIVE (NEGATIVE); NITRITE,URINE NEGATIVE (NEGATIVE); PROTEIN,URINE NEGATIVE (NEGATIVE); URINE SPECIFIC GRAVITY 1.006
[2017-06-05] MEDS: DIGOXIN 0.25 MG TABLET PO SCH (09:54)
[2017-06-05] MEDS: LISINOPRIL 10 MG TABLET PO SCH (09:54)
[2017-06-05] MEDS: DILTIAZEM HCL 120 MG CAP.SR.24H PO SCH (09:54)
[2017-06-05] MEDS: PRENATAL VITAMIN W-O CA NO5/FE FUMARATE/FA CAPSULE PO SCH (09:55)
[2017-06-05] MEDS: LACTOBACILLUS ACIDOPHILUS 250 MG TAB PO SCH (09:55)
[2017-06-05 13:32] VITALS: BP 109/88
--- NOTE | 2017-06-05 17:09 | DISCHARGE SUMMARY E ---
Discharge Summary NAME: KEVIN MUNIZ : 1945 AGE: 71Y ADMITTED: 05/27/2017 DISCHARGED: 06/05/2017 DISCHARGE DIAGNOSES: 1. Chronic atrial fibrillation. 2. Coronary artery disease with history of coronary artery bypass graft surgery with no anginal symptoms. 3. History of mitral valve repair with recurrent moderate mitral regurgitation. 4. Severe tricuspid regurgitation. 5. Pulmonary hypertension. 6. Anemia due to blood loss. 7. Status post open reduction of right prosthetic hip dislocation. HOSPITAL COURSE: Note that the patient was admitted on 05/27/2017 with right hip pain after he twisted his hip and had a dislocation. Initial attempts to try closed reduction in the OR was unsuccessful and the patient was scheduled to have a open surgical reduction under spinal anesthesia. Initially the patient was seen by me and was deemed to be an acceptable cardiac risk but subsequently the patient had an echocardiogram which showed that the patient's LV ejection fraction was low normal with no wall motion abnormality and the patient had moderate mitral regurgitation and also had severe tricuspid regurgitation and with severe pulmonary hypertension with right ventricular systolic pressure of 76 mmHg. Hence, the patient was thought to be a moderate risk for surgery although still acceptable. The patient underwent reduction surgically under spinal anesthesia on 05/29/2017. Intraoperatively as per the anesthesiologist, the patient had lost some blood and the patient also had atrial fibrillation with rapid ventricular response. He was started on Cardizem drip in the OR and subsequently the patient's blood pressure dropped and the patient was placed on Levophed. Subsequently the Levophed was there only for a short time and the patient's blood pressure recovered and the patient was placed in the ICU. Initially attempts to control the heart rate was difficult and also the patient did not want to take any medications but after discussion with the patient, the patient accepted and the patient initially was on Cardizem drip and subsequently was placed on Digoxin and with transitioned to oral Cardizem CD. The patient also, due to patient having had repair of the right hip surgically, the patient was placed on Xarelto 10 mg p.o. daily to prevent DVT/PE. The patient continued to be stable and on 06/04/2017, the patient was started on Coumadin. The risks, benefits, and bleeding complications was discussed with the patient, hence, the patient had valvular atrial fibrillation. It was discussed with the patient that Coumadin was the only choice. The patient initially had some reservations but subsequently did accept it and the patient subsequently his heart rate was controlled and the patient was transitioned to Cardizem CD 120 mg p.o. b.i.d. along with aspirin and Coumadin 5 mg p.o. at bedtime and also the patient's lisinopril was cut down to half the dose to 10 mg p.o. daily, and the patient was also continued on Digoxin 0.25 mg p.o. daily. His level last obtained was on 06/04/2017 and it was therapeutic at 1.01. The patient is being discharged home on 06/05/2017 in a stable and satisfactory condition. DISCHARGE MEDICATIONS: Include: 1. Tylenol 650 mg p.o. q. 4 hours p.r.n. 2. Digoxin 0.25 mg p.o. daily. 3. Cardizem CD 120 mg p.o. q. 12 hours. 4. Ferrous sulfate 325 mg p.o. b.i.d. for his anemia. 5. Lactobacillus acidophilus 500 mg p.o. b.i.d. 6. Prevacid 30 mg p.o. q. 6 a.m. 7. Lisinopril 10 mg p.o. daily. 8. Maalox Plus 30 mL p.o. q. 6 hours p.r.n. 9. Zofran 4 mg p.o. q. 6 hours p.r.n. 10. Xarelto 10 mg p.o. at bedtime but since patient could not afford it and I had samples of 15 mg, I advised the patient to take Xarelto 15 mg p.o. daily times 4 days and then stop since at that time the patient on Saturday will be having a repeat ProTime and I believe that the patient's INR would be therapeutic. The patient is to continue Xarelto 15 mg p.o. daily for 4 days and then stop and patient to continue daily Coumadin 5 mg p.o. daily. DISCHARGE INSTRUCTIONS: 1. Diet is 2 gm sodium, low cholesterol, low fat diet. 2. Activity as mentioned in the discharge summary. 3. The patient will be having Home Health/Physical Therapy at home. 4. The patient to see Dr. Solano in two weeks. 5. The patient will get his PT/INR drawn at [facility] and to follow up with them as primary care since the patient does not have a primary care. 6. Follow up with Dr. Adams, [facility] [employer], at [phone] in two to three weeks. The patient has my cell number and he is to call if there are any problems. OBJECTIVE: GENERAL: On 06/05/2017, the hospital physical examination showed the patient is well built and well nourished, in no acute distress. VITAL SIGNS: He is afebrile with a temperature of 97.3 degrees Fahrenheit. His pulse is 90 beats per minute, irregularly irregular. Blood pressure is 107/55. Respirations are 20 per minute. O2 saturations are 99% on room air. HEAD: Atraumatic/normocephalic. EYES: Pupils are equal, round, regular, reactive to light and accommodation. Extraocular movements are normal. There is no conjunctival pallor. There is no scleral icterus. EARS, NOSE, AND THROAT: Negative. NECK: Supple. There is no JVD. Carotids are equal. There is no bruit. There is no goiter. There is no lymphadenopathy. There are no accessory muscles of respiration used. Trachea is central. LUNGS: Clear to auscultation and percussion. There is no chest wall tenderness. HEART: S1, S2 is heard. There is no S3 gallop. There is no S4 gallop. S1 has variable intensity. There is a murmur of mitral regurgitation and tricuspid regurgitation present. There is no rub. ABDOMEN: Soft, nontender. There is no hepatosplenomegaly. Bowel sounds are well heard. There are no tender areas or masses. EXTREMITIES: Femorals are slightly diminished. There is no femoral bruit. Leg pulses are slightly diminished. There is no pedal edema. There is no cyanosis or clubbing. There is no DVT or cellulitis. There is no calf tenderness. Capillary refill is normal. CENTRAL NERVOUS SYSTEM: The patient is conscious, awake, alert, oriented x3 with no focal deficit. PSYCHIATRIC: The patient's judgement and insight are intact. His affect was normal. Note that the patient's discharge diagnoses as mentioned earlier it the beginning of this dictation. Note that the patient and the have been educated that the patient should be on SBE prophylaxis with antibiotics prior to dental, GI, procedures/surgeries in view of the patient having had mitral valve repair. Thank you. Will follow the patient as an outpatient since the patient desires to followup with me. DICTATING PHYSICIAN: WILLOW ADAMS M.D. [id number] PHY#: [id number] ID: [id number] JOB#: [id number] ACCT: [id number] cc:Cisco MONDRAGON M.D. > MTDD
== END 2017-06-05 14:29 | disposition home or self-care (01) | DRG 466 ==
LOC: ER 08:41 → EH 13:19 → UNDOADMIN 13:19 → 5 16:27 → EH 16:27 → 5 18:23 → 3S 05-29 12:53 → ICU 05-29 15:20 → 3S 05-31 10:54
PROVIDERS: ADMIT Orthopaedic Surgery; ATTEND Orthopaedic Surgery
PROC: 0SJ9XZZ Inspection of Right Hip Joint, External Approach (ICD-10-PCS; 2017-05-27)
PROC: 0SPA0JZ Removal of Synthetic Substitute from Right Hip Joint, Acetabular Surface, Open Approach (ICD-10-PCS; 2017-05-29)
PROC: 30233N1 Transfusion of Nonautologous Red Blood Cells into Peripheral Vein, Percutaneous Approach (ICD-10-PCS; 2017-05-29)
PROC: 0SRA0JA Replacement of Right Hip Joint, Acetabular Surface with Synthetic Substitute, Uncemented, Open Approach (ICD-10-PCS; principal; 2017-05-29 10:30)
DX: T84.020A Dislocation of internal right hip prosthesis, initial encounter (principal); R57.1 Hypovolemic shock; E87.1 Hypo-osmolality and hyponatremia; D62 Acute posthemorrhagic anemia; I48.2 Chronic atrial fibrillation; I25.10 Atherosclerotic heart disease of native coronary artery without angina pectoris; I27.2 Other secondary pulmonary hypertension; I08.1 Rheumatic disorders of both mitral and tricuspid valves; E78.5 Hyperlipidemia, unspecified; Z79.899 Other long term (current) drug therapy; I25.2 Old myocardial infarction; Z91.041 Radiographic dye allergy status; Z53.09 Procedure and treatment not carried out because of other contraindication; Z95.1 Presence of aortocoronary bypass graft; Z95.2 Presence of prosthetic heart valve
CPT/HCPCS: 01200; 01215; 36415; 36430; 71010; 72170; 80048; 80053; 80162; 80202; 81001; 82550; 82553; 83735; 84443; 84484; 85025; 85027; 85610; 85730; 86850; 86900; 86901; 86920; 87040; 87070; 87075; 87086; 87205; 93005; 93010; 93306; 94799; 99285; 99152; C1713; C9290; G8978-GP; G8979-GP; G8987-GO; G8988-GO; J1160; J1940; J2250; J2270; J2405; J2704; J3010; J3360; J3370; J3411; J3475; J3480; J3490; J7030; J7060; J7120; P9016

== ENCOUNTER → 2018-02-10 | Outpatient (CLI) | payer MEDICARE, OTHER ==
--- NOTE | 2018-02-10 15:41 | XCELERA REPORT ---
[address] [address] Lower Extremity Venous Evaluation Name: KEVIN MUNIZ Age: 72 yrs Gender: Male : 1945 Patient Status: Outpatient Patient Location: Study Date: 02/10/2018 11:22 AM Procedure: A bilateral duplex scan of the lower extremity veins was performed. The evaluation included responses to compression and other maneuvers with patient in the supine and standing positions to assess venous insufficiency. Reason For Study: BILATERAL LEG PAIN Ordering Physician: RICHARD BOURNE Performed By: Lisa Boateng Right Sided Venous Evaluation Deep venous system evaluation shows patent veins with no obstruction or significant reflux identified. Sapheno Femoral junction: no reflux. Femoral vein reflux: no reflux. Greater Saphenous vein, Proximal thigh: reflux: no reflux. Greater Saphenous vein, Distal thigh: reflux: no reflux. Greater Saphenous vein, Proximal below knee: reflux: no reflux. Significant Perforators identified. At 11.5 cms from the Tibial plateau:3.6 mm diameter, 1.7 second reflux. At 10 cms from the Tibial plateau:3.6 mm diameter, 2,3 second reflux. Left Sided Venous Evaluation Deep venous system evaluatiion shows patent veins with no obstruction or significant reflux identified. Sapheno Femoral junction: no reflux. Femoral vein reflux: no reflux. Greater Saphenous vein, Proximal thigh: reflux: no reflux. Greater Saphenous vein, Distal thigh: reflux: no reflux. Greater Saphenous vein, Proximal below knee: reflux: no reflux. No significant Perforators identified. Interpretation Summary No duplex evidence of DVT or obstruction in the bilateral lower extremities. [employer] reflux noted in the right lower extremity. : RICHARD BOURNE > Harish Chisholm
== END ==
LOC: SP 10:57
PROVIDERS: ATTEND Student in an Organized Health Care Education/Training Program
DX: I73.9 Peripheral vascular disease, unspecified (principal); M79.662 Pain in left lower leg; M79.661 Pain in right lower leg
CPT/HCPCS: 93970